=== PATIENT | male | born 1985 | race Hispanic/Latino ===

== ENCOUNTER 2024-06-29 12:52 | Inpatient (IN) | payer SELFPAY ==
[2024-06-29] VITALS (32 sets, daily range): BP systolic 92–133; BP diastolic 55–75; PULSE 75–109; RESP 10–98; TEMP 36.3–37.6; O2SAT 12–100; BMI 24.0
--- NOTE | ~2024-06-29 | CT_ITS ---
CT abdomen pelvis w con Ordering provider: Yancy Boyle PA-C History: 38 years Male with . right sided abdominal pain, hematemesis . Comparison: None. Technique: CT abdomen and pelvis with IV and without oral contrast. Automated exposure control and it erative reconstruction technique were employed. The dose-length product was 651.73 mGy-cm. 100 mL Omn ipaque 350 was given IV. Findings: VISUALIZED LOWER CHEST: Dependent atelectatic changes. Trace of right sided pleural effusion is seen. UPPER ABDOMINAL ORGANS: Liver: Normal. Gallbladder: Slightly thickened wall of the gallbladder with no evidence of stones. Clinical correlat ion to evaluate for cholecystitis advised. Spleen: Normal. Stomach/duodenum: Small sliding hiatus hernia. Pancreas: Normal. Adrenals: Normal. Kidneys: Normal. PELVIC ORGANS: The bladder is normal. Prostatic calcification. BOWEL AND MESENTERY: Colon: No evidence of diverticulitis. Normal appendix. Small Bowel: Normal. No obstruction. Peritoneum/mesentery: No free air. Ascites is seen in the subhepatic, perisplenic, right and left par acolic gutter areas and in both sides of the pelvis. No mesenteric lymphadenopathy. RETROPERITONEUM: Normal aorta. No retroperitoneal lymphadenopathy. MUSCULOSKELETAL: Superficial soft tissues: The superficial soft tissues are normal. Bones: Age appropriate degenerative changes of the spine. Bilateral sacroiliitis. IMPRESSION: 1. Thickened wall of the gallbladder. Clinical evaluation for cholecystitis advised. 2. Small sliding hiatus hernia. 3. Ascites is seen in the infrahepatic, perisplenic and paracolic areas more on the right side. 4. Prostatic calcifications is noted. Possibility of a prostatic urethra stone is less likely. Clini grabiel correlation advised. Reviewed, dictated and finalized at location A. IMPRESSION: 1. Thickened wall of the gallbladder. Clinical evaluation for cholecystitis ad vised. 2. Small sliding hiatus hernia. 3. Ascites is seen in the infrahepatic, perisplenic and paracolic areas more o n the right side. 4. Prostatic calcifications is noted. Possibility of a prostatic urethra stone is less likely. Clinical correlation advised.
--- NOTE | ~2024-06-29 | XR_ITS ---
Portable chest x-ray Comparison: None Clinical History: Tube placement Findings: Endotracheal tube tip is just above the danny. Consider mild retraction. NG tube in [employer] position. There is focal discoid left basilar atelectasis. Lungs are otherwise clear. Cardio mediastinal silhouette is stable. Bones and soft tissues are unremarkable. Impression: ET tube tip just above the danny. Consider mild retraction. NG tube in satisfactory position. Focal discoid left basilar atelectasis or scarring. Reviewed, dictated and finalized at location . SAW OPERATOR Impression: ET tube tip just above the danny. Consider mild retraction. NG tube in satisfactory position. Focal discoid left basilar atelectasis or scarring.
--- NOTE | ~2024-06-29 | US_ITS ---
US abdomen complete DATE: 06/30/2024 12:52 INDICATION: Right upper quadrant abdominal pain TECHNIQUE: Real-time imaging of the liver, pancreas, gallbladder COMPARISON: 06/29/2024 CT abdomen pelvis FINDINGS: No hepatic space-occupying mass lesion. Normal hepatopedal portal venous flow direction. Mild ascites, with fluid noted in the perihepatic area and Morison's pouch. The gallbladder is not optimally distended; the patient is reportedly not NPO. No apparent gallstones are noted.. The pancreas is unremarkable. The spleen measures 12.8 cm, within upper normal range. Right kidney measures 12.2 cm length, left kidney 13.2 cm length. No renal mass lesion or hydronephro sis is detected. IMPRESSION: Mild ascites Reviewed, dictated and finalized at [facility]. Reviewed, dictated and finalized at [facility]. IMPRESSION: Mild ascites
--- NOTE | ~2024-06-29 | XR_ITS ---
Upright portable view of the abdomen Clinical history: NG tube placement Findings: NG tube in satisfactory position. Bowel gas pattern somewhat nonspecific. No evidence for o bstruction or free air. No abnormal mass lesion or calcification is seen. Osseous structures are inta ct. Impression: NG tube in satisfactory position. Reviewed, dictated and finalized at [facility]. MIXER Impression: NG tube in satisfactory position.
--- NOTE | 2024-06-29 13:06 | ED.GIBLEED ---
HPI - GI Bleed General Chief complaint: GI Bleed Stated complaint: vomiting blood Time Seen by Provider: 06/29/24 12:58 Source: patient and family Mode of arrival: ambulatory Limitations: language barrier (spanish interpreter/translator Eddie #[id number]) History of Present Illness HPI Narrative: Patient presents with bright red hematemesis. He had a few episodes in triage and has a bag with frankly bloody emesis, not coffee grounds. He has had 6 episodes today and endorses abdominal pain. Has noticed that his stoo is loose and dark. Drinks alcohol daily, last drink yesterday. Denies syncope. States it has never happened before. Has not seen a cylinder dyer. No diagnosed history of hepatic disease (cirrhosis, liver failure, known varices) or cardiac failure. Related Data Allergies Allergy/AdvReac Type Severity Reaction Status Date / Time No Known Allergies Allergy Verified 06/29/24 13:21 [facility] Social History Social History (Updated 06/29/24 @ 19:59 by Cristiana Matta MD) Social History: Guamanian speaking Alcohol intake: current Alcohol use details: daily Exam Narrative: GENERAL: Ill-appearing, well-nourished but in acute distress. HEAD: Normocephalic, atraumatic. EYES: Non injected, mildly icteric. conjunctival pallor. ENT: Nares clear, no rhinorrhea or epistaxis. NECK: Supple. CHEST: Non labored. No respiratory distress. HEART: Tachycardic rate and rhythm. . ABDOMEN/GI: Soft, nondistended. Large vomitus bright red hematemesis. Normal rectal tone. FOBT/guiaic grossly positive x2 windows. EXTREMITIES: Normal range of motion. No lower extremity edema. SKIN: Diaphoretic, no rash. NEURO: No focal deficits. Alert and oriented x3. Tremulous fingers when outstretched. PSYCH: Normal mood and affect. Course Vital Signs Vital signs: Vital Signs Temperature 99.0 F 06/29/24 12:59 Pulse Rate 102 H 06/29/24 12:59 Respiratory Rate 15 06/29/24 12:59 Blood Pressure 95/55 L 06/29/24 12:59 Pulse Oximetry 98 06/29/24 12:59 Oxygen Delivery Room Air 06/29/24 12:59 Temperature 98.6 F 06/29/24 16:40 Pulse Rate 107 H 06/29/24 19:29 Respiratory Rate 20 06/29/24 19:29 Blood Pressure 107/58 L 06/29/24 19:29 Pulse Oximetry 100 06/29/24 19:29 Oxygen Delivery Room Air 06/29/24 12:59 MDM - GI Bleed MDM Narrative Medical decision making narrative: Patient presents with marked bright red hematemesis. Initially hypotensive and diaphoretic. He drinks alcohol daily by report with last drink yesterday but no diagnosed underlying liver issues. In the ED he is afebrile with VS notable for hypotension and mild tachycardia. 2 large bore IVs initiated and patient given 1L IV fluids, ceftriaxone , 80mg Protonix IV. He is also given Zofran and octreotide bolus followed by infusion. Patient's hemodynamics improve and he is no longer diaphoretic on reassessment. Rectal exam guiaic positive. Hemoglobin <7. Blood product transfusion I have discussed the proposed blood product transfusion with the patient and support person. I have informed the patient regarding potential risks of blood product transfusion which, though rare, include transfusion reaction, hepatitis, and HIV. The patient has been given the opportunity to ask questions about the need to be transfused and possible outcomes of not receiving this treatment. Patient has verbally agreed to undergo transfusion. Nurse will obtain signed consent and place it in the patient's chart. Order was placed for transfusion of 1 unit of packed red blood cells. Patient has hyperglycemia with an anion gap but no radha acidosis on CMP. I suspect this is due to starvation ketosis. Lactic acid also elevated. He has mild hypokalemia. Will replete and obtain a magnesium level to assess for concomitant electrolyte derangements. [place] bleeding score: 10 points - high risk. Based on patient's Hgb, BUN, initial SBP, sex, heart rate, presence/absence of melena, syncope, hepatic disease, cardiac failure Discussed with GI Dr Emmanuel Shaikh who plans to perform EGD tomorrow. NPO immediately. He does have another incident in which he belches and has another recurrence of bloody vomitus although less volume and short lived. Compazine ordered. I did discuss with Dr Emmanuel Shaikh again who advises to continue to defer NG tube placement at this time. Ativan ordered small dose for concern for alcohol withdrawal. CIWA protocol ordered: score 15. Blood transfusion finishes and patient does note that he has some hives on his left buttock. I did evaluate these at bedside and concur. They are also not previously seen when I performed a rectal exam. Otherwise no hives elsewhere. Will administer diphenhydramine but otherwise no other systemic signs of blood transfusion reaction or anaphylaxis. Repeat H/H performed which shows worsening. Given now <6, 2 units ordered. Discussed with hospitalist KAYLEEN Zeng who discusses with hospitalist attending. Patient to be accepted but discussed with insulator helper. Discussed with insulator helper who concurs with management and does recommend ICU admission. Critical Care More than 1 vital organs impaired with high probability of decompensation requiring critical care time. Time includes spent talking to patient/family, consultants and admitting team, interpreting labs, reviewing results, frequent reassessments and management. Time excludes separate billable procedures. Differential Diagnosis Differential diagnosis: Likely esophageal varices, gastritis, Nevaeh-Martel syndrome, Upper gastrointestinal hemorrhage and melena Lab Data Attestation: I reviewed the patient's lab results. 06/29/24 17:34 06/29/24 13:09 Labs: Lab Results 06/29/24 06/29/24 06/29/24 Range/Units 13:06 13:09 16:31 WBC 12.0 H (4.5-10.0) K/mm3 RBC 2.67 L (4.6-6.20) M/mm3 Hgb 6.1 L* (14.0-18.0) g/dL Hct 20.8 L* (42.0-52.0) % MCV 77.9 L (80-100) fl MCH 22.8 L (26-34) pg MCHC 29.3 L (32-36) g/dl RDW 21.8 H (11.5-14.5) % Plt Count 122 L (150-375) k/mm3 MPV 11.3 H (7.4-10.4) fl Immature Gran % (Auto) 0.3 (0-0.5) % Neut % (Auto) 50.9 (45.5-73.1) % Lymph % (Auto) 39.3 (18.3-44.2) % Craig % (Auto) 8.3 (2.6-8.5) % Eos % (Auto) 0.7 (0-4.4) % Baso % (Auto) 0.5 (0.2-1.2) % Lymph # (Auto) 4.70 H (0.9-3.2) K/mm3 Craig # (Auto) 1.0 H (0.1-0.6) K/mm3 Eos # (Auto) 0.1 (0-0.3) K/mm3 Baso # (Auto) 0.1 (0.0-0.1) K/mm3 Abs Immat Gran (auto) 0.04 H (0.00-0.031) K/mm3 Absolute Neuts (auto) 6.1 (1.3-6.7) K/mm3 Absolute Nucleated RBC 0.030 H (0.0-0.012) K/mm3 Nucleated RBC % 0.3 H (0.0-0.2) % Platelet Estimate Slightly decreased (Adequate) % Immature Plt Fraction 10.9 (0.9-11.2) % Polychromasia 1+ Hypochromasia 2+ Anisocytosis 2+ Target Cells 1+ Schistocytes None seen PT 16.0 H (11.1-14.7) Seconds INR 1.3 APTT 24.8 (22.3-36.8) Seconds Sodium 138 (137-145) mmol/L Potassium 3.2 L (3.4-5.0) mmol/L Chloride 101 (98-107) mmol/L Carbon Dioxide 22 (22-30) mmol/L Anion Gap 15 H (4-12) mmol/L BUN 8 L (9-20) mg/dL Creatinine 0.60 L (0.7-1.3) mg/dL Estim Creat Clear Calc 131 ml/min Estimated GFR > 60 (59 - ) Glucose 164 H (65-110) mg/dL POC Capillary Glucose 169 H (65-105) mg/dl Lactic Acid 4.4 H* 1.8 (0.7-2.0) mmol/L Calcium 8.5 (8.4-10.2) mg/dL Magnesium 2.1 (1.6-2.3) mg/dL Total Bilirubin 1.2 (0.2-1.3) mg/dL AST 55 (17-59) U/L ALT 19 (6-50) U/L Alkaline Phosphatase 116 (38-126) U/L Troponin I < 0.012 (0.000-0.034) ng/mL NT-Pro-B Natriuret Pep < 20 (19.9-100) pg/mL Total Protein 9.0 H (6.3-8.2) g/dL Albumin 4.2 (3.5-5.1) g/dL Blood Type O Positive Antibody Screen Negative Crossmatch See Detail 06/29/24 Range/Units 17:34 WBC (4.5-10.0) K/mm3 RBC (4.6-6.20) M/mm3 Hgb 5.7 L* (14.0-18.0) g/dL Hct 18.4 L* (42.0-52.0) % MCV (80-100) fl MCH (26-34) pg MCHC (32-36) g/dl RDW (11.5-14.5) % Plt Count (150-375) k/mm3 MPV (7.4-10.4) fl Immature Gran % (Auto) (0-0.5) % Neut % (Auto) (45.5-73.1) % Lymph % (Auto) (18.3-44.2) % Craig % (Auto) (2.6-8.5) % Eos % (Auto) (0-4.4) % Baso % (Auto) (0.2-1.2) % Lymph # (Auto) (0.9-3.2) K/mm3 Craig # (Auto) (0.1-0.6) K/mm3 Eos # (Auto) (0-0.3) K/mm3 Baso # (Auto) (0.0-0.1) K/mm3 Abs Immat Gran (auto) (0.00-0.031) K/mm3 Absolute Neuts (auto) (1.3-6.7) K/mm3 Absolute Nucleated RBC (0.0-0.012) K/mm3 Nucleated RBC % (0.0-0.2) % Platelet Estimate (Adequate) % Immature Plt Fraction (0.9-11.2) % Polychromasia Hypochromasia Anisocytosis Target Cells Schistocytes PT (11.1-14.7) Seconds INR APTT (22.3-36.8) Seconds Sodium (137-145) mmol/L Potassium (3.4-5.0) mmol/L Chloride (98-107) mmol/L Carbon Dioxide (22-30) mmol/L Anion Gap (4-12) mmol/L BUN (9-20) mg/dL Creatinine (0.7-1.3) mg/dL Estim Creat Clear Calc ml/min Estimated GFR (59 - ) Glucose (65-110) mg/dL POC Capillary Glucose (65-105) mg/dl Lactic Acid (0.7-2.0) mmol/L Calcium (8.4-10.2) mg/dL Magnesium (1.6-2.3) mg/dL Total Bilirubin (0.2-1.3) mg/dL AST (17-59) U/L ALT (6-50) U/L Alkaline Phosphatase (38-126) U/L Troponin I (0.000-0.034) ng/mL NT-Pro-B Natriuret Pep (19.9-100) pg/mL Total Protein (6.3-8.2) g/dL Albumin (3.5-5.1) g/dL Blood Type Antibody Screen Crossmatch ECG Data EKG #1: Attestation: I personally reviewed and interpreted this ECG as follows: ECG completion date: 06/29/24 ECG completion time: 13:06 Interpretation: sinus tachycardia at a rate of 100 beats per minute. WA interval 108. QRS 86. QT/ QTC 381/438. Good R-wave progression across the precordial leads. T-wave inversion isolated to lead 3 but otherwise upright in normal in contiguous 2 and AVF. There is also T-wave flattening in questionable inversion in V3 but upright in V4. Critical Care Time Critical Care Time Critical Care Time: Yes Total Critical Care Time: 35 Discharge Plan Discharge Clinical Impression: Acute upper gastrointestinal bleeding, Leukocytosis, Microcytic anemia, Thrombocytopenia, Blood transfusion during current hospitalisation, Hyperglycemia, Hypokalemia, Alcohol abuse, Alcohol withdrawal Patient Disposition: Still a Patient Condition: Serious
[2024-06-29 13:09] LABS: Glucose Point of Care 169 mg/dl (65-105)
--- NOTE | 2024-06-29 13:14 | ECG_ITS ---
Test Date: 2024-06-29 13:06:05 Measurements Intervals [place] Rate: 100 P: 15 AL: 108 QRS: 17 QRSD: 86 T: 17 QT: 381 QTc: 493 Interpretive Statements SINUS TACHYCARDIA WITH SHORT AL INTERVAL POSSIBLE RIGHT VENTRICULAR CONDUCTION DELAY BORDERLINE T WAVE ABNORMALITY- ANTERIOR LEADS BORDERLINE ECG No previous ECG available for comparison Electronically Signed On 06-29-2024 13:36:59 CDT by Torey Ballesteros D.O.
[2024-06-29] MEDS: PANTOPRAZOLE SODIUM IV 40 MG VIAL 80 MG (13:17)
[2024-06-29 13:18] LABS: Basophils Absolute Auto 0.1 K/mm3 (0.0-0.1); Basophils Percent Auto 0.5 % (0.2-1.2); Eosinophils Absolute Auto 0.1 K/mm3 (0-0.3); Eosinophils Percent Auto 0.7 % (0-4.4); Immature Granulocyte Absolute 0.04 K/mm3 (0.00-0.031); Immature Granulocyte Percent A 0.3 % (0-0.5); Immature Platelet Fraction Pct 10.9 % (0.9-11.2); Lymphocytes Percent Auto 39.3 % (18.3-44.2); Mean Corpuscular HGB Conc 29.3 g/dl (32-36); Mean Corpuscular Hemoglobin 22.8 pg (26-34); Mean Corpuscular Volume 77.9 fl (80-100); Mean Platelet Volume 11.3 fl (7.4-10.4); Monocytes Percent Auto 8.3 % (2.6-8.5); Neutrophils Absolute Auto 6.1 K/mm3 (1.3-6.7); Neutrophils Percent Auto 50.9 % (45.5-73.1); Nucleated Red Blood Cells Perc 0.3 % (0.0-0.2); Platelet Count Result 122 k/mm3 (150-375); Red Blood Count 2.67 M/mm3 (4.6-6.20); Red Cell Distribution Width 21.8 % (11.5-14.5)
[2024-06-29] MEDS: SODIUM CHLORIDE 0.9% IV 1,000 ML 999 ML (13:18)
[2024-06-29] MEDS: ONDANSETRON INJ 4 MG/2 ML VIAL IV PUSH ×2 (13:20→22:58)
[2024-06-29] MEDS: OCTREOTIDE ACETATE 50 MCG/ML VIAL IV PUSH (13:24)
[2024-06-29 13:25] LABS: INR 1.3; Partial Thromboplastin Time 24.8 Seconds (22.3-36.8)
[2024-06-29 13:33] LABS: Hemoglobin 6.1 g/dL (14.0-18.0)
[2024-06-29 13:34] LABS: Alanine Aminotransferase 19 U/L (6-50); Albumin Level 4.2 g/dL (3.5-5.1); Alkaline Phosphatase 116 U/L (38-126); Anion Gap 15 mmol/L (4-12); Aspartate Amino Transferase 55 U/L (17-59); Bilirubin,Total 1.2 mg/dL (0.2-1.3); Blood Urea Nitrogen 8 mg/dL (9-20); Calcium 8.5 mg/dL (8.4-10.2); Carbon Dioxide 22 mmol/L (22-30); Chloride 101 mmol/L (98-107); Estimated CRCL calculation 131 ml/min; Estimated Glomerular Filt Rate > 60; Glucose 164 mg/dL (65-110); Hematocrit 20.8 % (42.0-52.0); Potassium 3.2 mmol/L (3.4-5.0); Sodium 138 mmol/L (137-145)
[2024-06-29 13:35] LABS: Platelet Estimate Slightly Decreased (Adequate)
[2024-06-29 13:36] LABS: Anisocytosis 2+; Hypochromasia 2+; Target Cells 1+
[2024-06-29 13:37] LABS: Polychromasia 1+
[2024-06-29 13:39] LABS: Schistocytes None Seen
[2024-06-29 13:46] LABS: Troponin I < 0.012 ng/mL (0.000-0.034)
[2024-06-29 13:53] LABS: Lactic Acid Reflex 4.4 mmol/L (0.7-2.0)
[2024-06-29] MEDS: OCTREOTIDE ACETATE 500 MCG in SODIUM CHLORIDE 0.9% IV 99 ML 10 MCG IV CONT (14:46)
[2024-06-29] MEDS: SODIUM CHLORIDE 0.9% IV 1,000 ML 999 ML IV CONT (15:12)
[2024-06-29] MEDS: SODIUM CHLORIDE 0.9% IV 250 ML 30 ML IV CONT ×2 (15:25→22:55)
[2024-06-29 15:31] LABS: Magnesium 2.1 mg/dL (1.6-2.3)
[2024-06-29 15:41] LABS: NT Pro B Type Natriuretic Pept < 20 pg/mL (19.9-100)
[2024-06-29] MEDS: LORazepam INJ (*CRX) 2 MG/ML VIAL 0.5 MG IV PUSH (15:45)
[2024-06-29] MEDS: PROCHLORPERAZINE EDISYLATE 10 MG/2 ML VIAL 5 MG IV PUSH (15:47)
[2024-06-29 16:14] LABS: Reflex Lactic Acid Yes or No Add Lactic
[2024-06-29] MEDS: diphenhydrAMINE HCl INJ 50 MG/ML VIAL 25 MG IV PUSH (16:38)
[2024-06-29] MEDS: KCL 20 MEQ/SW 100 ML 100 ML 50 MEQ IVPB (16:43)
--- NOTE | 2024-06-29 16:45 | PC.NURSE ---
PT WITH C/O ITCHING AND RASH TO BILATERAL BUTTOCKS/UPPER THIGHS POSTERIORLY. SMALL AREA OF HIVES NOTED. NO RASH/HIVES ANYWHERE ELSE ON BODY. NO RESP DISTRESS. DR RAMSEY MADE AWARE. BENADRYL ORDERED AND GIVEN.
[2024-06-29 16:47] LABS: Lactic Acid 1.8 mmol/L (0.7-2.0)
[2024-06-29 17:44] LABS: Hemoglobin 5.7 g/dL (14.0-18.0)
[2024-06-29 17:45] LABS: Hematocrit 18.4 % (42.0-52.0)
--- NOTE | 2024-06-29 20:50 | PM.IMHP ---
H&P: HPI History of Present Illness Date/Time: 06/29/24 20:50 Chief Complaint: Vomiting blood. Narrative: This is a pleasant 38-year-old male with history of alcohol abuse who presented to the emergency department for evaluation of vomiting blood. He is Lithuanian-speaking and the following history is obtained via video assisted camp cook. Yesterday evening the patient developed sharp ?needle-like? pain in the periumbilical region radiating to the right mid and upper quadrant. He had sweats and ran a fever last evening though did not take his temperature. He also vomited several times what sounds like coffee-ground emesis. This morning he had a loose, dark and tarry stools and he began vomiting bright red blood admixed with clots which led him to the ED for evaluation. With further questioning he reports having intermittent sharp chest pain which are brief and occur without pattern though that has not occurred recently. At times he feels short of breath. He denies indigestion, bloating, and belching. He drinks 6 beers a day and has for at least 10 years. He denies significant caffeine intake and denies taking NSAIDs. He has no known history of peptic ulcers, liver disease, or heart disease. He also denies cold and flu symptoms, exertional chest pain, pleuritic pain, palpitations, cough, syncope, and near syncope. Regarding his alcohol intake, he does admit to getting sweats and shakes if he goes a day or 2 without drinking. He denies hallucinations and has no history of alcohol withdrawal seizures. In the ED: Blood pressure was 95/55 on arrival and he has been tachycardic in the upper 90s to low 100s. Labs are significant for WBC count of 12.0, hemoglobin 6.1, hematocrit 20.8, platelet 122, potassium 3.2, anion gap 15, BUN 8, creatinine 0.60, lactic acid 4.4, PT 16, INR 1.3, PTT 24.8. 3 units packed red blood cells were ordered and he has been started on octreotide and pantoprazole drips. He is being admitted to the ICU in this setting for close monitoring and GI consultation. Review of Systems Review of Systems: 12 systems were reviewed and are negative except for as per HPI. [facility] Past Medical History Medical History Alcohol abuse Surgical History Surgical History (Updated 06/29/24 @ 21:37 by Yancy Boyle PA-C) No history of previous surgery Family History Family History (Updated 06/29/24 @ 21:37 by Yancy Boyle PA-C) Other Family history non-contributory Social History Social History (Updated 06/29/24 @ 21:38 by Yancy Boyle PA-C) Social History: Surrogate medical decision maker: Tina Whitman, spouse. Code status: Full code. Smoking status: Current some day smoker Tobacco type: cigarettes Additional smoking assessment comments: Smokes rarely on occasion. Alcohol intake: current Drinks per week: 42 Alcohol use details: Six beers a day. Substance use: never Do You Feel Safe in your Home?: Yes Lack of Transportation: No Lack of Food: Never True Current Housing: I Have Housing Concerned About Future Housing: No Difficulty Paying Gas/Electric Bills: No Difficulty Paying for Meds: No Currently Unemployed: No Education: Decline to Answer Difficulty w/ Childcare or Family Care: No Additional living arrangements comments: Lives with and 2 children. 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 Spiritual care concerns: No Meds Home Medications and Allergies Allergies Allergy/AdvReac Type Severity Reaction Status Date / Time No Known Allergies Allergy Verified 06/29/24 13:21 Vital Signs Vital Signs - 24 hr 06/29/24 12:59 06/29/24 13:28 06/29/24 13:50 Temperature 99.0 F Pulse Rate 102 H 75 93 Respiratory Rate 15 12 12 Blood Pressure 95/55 L 92/60 L 121/66 Pulse Oximetry 98 100 100 Oxygen Delivery Room Air 06/29/24 14:48 06/29/24 13:31 06/29/24 13:46 Temperature Pulse Rate 95 87 93 Respiratory Rate 12 12 13 Blood Pressure 101/60 103/61 121/66 Pulse Oximetry 100 100 100 Oxygen Delivery 06/29/24 14:01 06/29/24 14:16 06/29/24 15:25 Temperature 98.4 F Pulse Rate 98 98 100 Respiratory Rate 13 12 16 Blood Pressure 117/68 112/63 129/75 Pulse Oximetry 98 99 100 Oxygen Delivery 06/29/24 15:40 06/29/24 16:40 06/29/24 15:30 Temperature 98.8 F 98.6 F Pulse Rate 102 H 100 100 Respiratory Rate 14 14 12 Blood Pressure 133/72 114/65 128/72 Pulse Oximetry 100 100 100 Oxygen Delivery 06/29/24 15:31 06/29/24 15:40 06/29/24 15:46 Temperature Pulse Rate 103 H 102 H 101 H Respiratory Rate 15 14 15 Blood Pressure 125/74 133/72 127/68 Pulse Oximetry 100 100 100 Oxygen Delivery 06/29/24 16:19 06/29/24 17:16 06/29/24 17:31 Temperature Pulse Rate 107 H 103 H 102 H Respiratory Rate 13 14 14 Blood Pressure 126/70 113/72 115/69 Pulse Oximetry 99 99 99 Oxygen Delivery 06/29/24 17:46 06/29/24 18:16 06/29/24 18:31 Temperature Pulse Rate 104 H 108 H 109 H Respiratory Rate 13 14 16 Blood Pressure 100/63 110/66 112/69 Pulse Oximetry 99 96 98 Oxygen Delivery 06/29/24 19:00 06/29/24 19:29 06/29/24 20:18 Temperature Pulse Rate 106 H 107 H 90 Respiratory Rate 12 20 12 Blood Pressure 106/66 107/58 L 118/66 Pulse Oximetry 100 100 97 Oxygen Delivery 06/29/24 20:34 06/29/24 20:38 Temperature 98.1 F 98.1 F Pulse Rate 99 96 Respiratory Rate 98 H 14 Blood Pressure 118/67 118/67 Pulse Oximetry 12 L 98 Oxygen Delivery Exam Narrative: General: Moderately ill-appearing male supine in bed. Weight: 67.7 kg. BMI: 24.1. HEENT: Normocephalic, atraumatic. PERRL, EOMI. Sclera anicteric. Conjunctiva mildly injected. Tacky mucous membranes. Neck: Supple. Respiratory: Lungs are clear to auscultation bilaterally. Cardiovascular: Regular rate and rhythm with S1-S2. Systolic murmur at the left sternal border and apex. Gastrointestinal: Abdomen is soft and nondistended with hypoactive bowel sounds. He is very tender to palpation over the right side of the abdomen with mild guarding but no obvious rebound tenderness. Skin: Warm and dry. Generalized pallor. Extremities: No cyanosis, clubbing, or edema. Radial and pedal pulses intact. Neurological: Alert. Cranial nerves 2-12 are grossly intact. No tremors. No gross focal deficits to casual conversation. Psychiatric: Pleasant and cooperative with appropriate mood and affect. H&P: Results Labs Labs: Short CBC 06/29/24 06/29/24 Range/Units 13:09 17:34 WBC 12.0 H (4.5-10.0) K/mm3 Hgb 6.1 L* 5.7 L* (14.0-18.0) g/dL Hct 20.8 L* 18.4 L* (42.0-52.0) % Plt Count 122 L (150-375) k/mm3 BMP 06/29/24 13:09 Sodium 138 Potassium 3.2 L Chloride 101 Carbon Dioxide 22 BUN 8 L Creatinine 0.60 L Glucose 164 H Calcium 8.5 Cardiac Enzymes 06/29/24 Range/Units 13:09 Troponin I < 0.012 (0.000-0.034) ng/mL Liver Function 06/29/24 Range/Units 13:09 Total Bilirubin 1.2 (0.2-1.3) mg/dL AST 55 (17-59) U/L ALT 19 (6-50) U/L Alkaline Phosphatase 116 (38-126) U/L Albumin 4.2 (3.5-5.1) g/dL Assessment and Plan Assessment and plan (1) Acute upper gastrointestinal bleeding: Code(s): K92.2 - Gastrointestinal hemorrhage, unspecified Status: Acute (2) Acute blood loss anemia: Code(s): D62 - Acute posthemorrhagic anemia Status: Acute (3) Hypokalemia: Code(s): E87.6 - Hypokalemia Status: Acute (4) Right sided abdominal pain: Code(s): R10.9 - Unspecified abdominal pain Status: Acute (5) Microcytic anemia: Code(s): D50.9 - Iron deficiency anemia, unspecified Status: Acute (6) Thrombocytopenia: Code(s): D69.6 - Thrombocytopenia, unspecified Status: Acute (7) Cardiac murmur: Code(s): R01.1 - Cardiac murmur, unspecified Status: Acute (8) Alcohol abuse: Code(s): F10.10 - Alcohol abuse, uncomplicated Status: Acute Plan The patient presented to the emergency department for evaluation of dark stools and hematemesis with clots as detailed in HPI. Labs, imaging, EKG, and all reports were personally reviewed. Concerns are for gastritis, peptic ulcers, or even bleeding varices given history of alcohol abuse. He has been started on pantoprazole and octreotide drips as well as ceftriaxone 1 g daily. He is being transfused to a stable hemoglobin. Lactic acid level has normalized with fluids and blood. CT of the abdomen and pelvis is pending as he is very tender even to percussion over the right side of the abdomen. Blood pressures have been stable since admission to the ICU. Potassium will be replaced and monitored. Check fasting glucose and hemoglobin A1c. Iron studies, B12, and folate have been ordered given microcytic anemia. Thrombocytopenia may very well be related to alcohol abuse. Echocardiogram ordered for evaluation of cardiac murmur (may be due to high output however patient reports having intermittent chest pain though none recently). At this time he reports having mild withdrawal symptoms and CIWA protocol has been initiated. Start thiamine and folic acid supplementation. Findings and treatment plan were discussed with the patient. Questions were solicited and answered to satisfaction. The patient's medical management will be taken over by the hospitalist team in a.m. Quality VTE Prophylaxis VTE prophylaxis: mechanical ordered If No VTE Prophylaxis Answer both mechanical and pharmacologic: Reason no pharmacologic proph: medical contraindication (GI bleed) The patient has been admitted under observation status. Critical Care Time Critical Care Time: Yes Total Critical Care Time: 65 Attestation: Due to a high probability of clinically significant, life threatening deterioration, the patient required my highest level of preparedness to intervene emergently and I personally spent this critical care time directly and personally managing the patient. This critical care time included obtaining a history; examining the patient; pulse oximetry; ordering and review of studies; arranging urgent treatment with development of a management plan; evaluation of patient's response to treatment; frequent reassessment; and discussions with other providers. It was exclusive of separately billable procedures and treating other patients and teaching time. Please see Assessment and Plan section and the rest of the note for further information on patient assessment and treatment.
--- NOTE | 2024-06-29 21:03 | ADMGEN ---
This patient, Laron Macdonald, was admitted to Intensive Care Unit-2. Patient/family oriented to hospital policies and general routines including ID bracelet, bed and alarms, visiting hours, pain management, procedures, bathroom and other care routines, personal items, smoking policy, room service/diet, and visiting hours. Information on how to activate the Rapid Response Team has been discussed. Patient/Family are encouraged to report perceived risks to care and to ask questions if they do not understand what they are told or what they should do.
[2024-06-29] MEDS: PANTOPRAZOLE SODIUM IV 80 MG in SODIUM CHLORIDE 0.9% IV 500 ML 50 MG IV CONT (22:51)
[2024-06-29] MEDS: MORPHINE SULFATE (*CRX) 4 MG/ML INJ IV PUSH (22:54)
[2024-06-29 22:55] LABS: MRSA (PCR) NOT DETECTED (NOT DETECTE)
[2024-06-29] MEDS: TUBING, BLOOD PLUM PUMP TUBING 1 EACH XX (22:55)
[2024-06-29 23:29] LABS: Iron 36 ug/dL (49-181)
[2024-06-29 23:39] LABS: Percent Iron Saturation 7 % (20-50)
[2024-06-30] VITALS (24 sets, daily range): BP systolic 85–126; BP diastolic 48–77; PULSE 68–858; RESP 10–20; TEMP 36.1–37.5; O2SAT 96–100
[2024-06-30 00:05] LABS: Ferritin 8.76 ng/mL (17.9-464)
[2024-06-30] MEDS: OCTREOTIDE ACETATE 500 MCG in SODIUM CHLORIDE 0.9% IV 99 ML 10 MCG IV CONT (00:07)
[2024-06-30 00:18] LABS: Glucose Point of Care 122 mg/dl (65-105)
[2024-06-30 00:37] LABS: Folic Acid 10.7 ng/mL (2.76->20)
[2024-06-30] MEDS: metroNIDAZOLE 500 MG/ISO 100ML 500 MG/100 ML BAG 100 MG IVPB ×4 (01:09→23:37)
[2024-06-30 04:03] LABS: Basophils Percent Auto 0.3 % (0.2-1.2); Eosinophils Percent Auto 0.5 % (0-4.4); Hematocrit 26.1 % (42.0-52.0); Hemoglobin 8.3 g/dL (14.0-18.0); Immature Granulocyte Absolute 0.01 K/mm3 (0.00-0.031); Immature Granulocyte Percent A 0.2 % (0-0.5); Immature Platelet Fraction Pct 8.8 % (0.9-11.2); Lymphocytes Absolute Auto 1.37 K/mm3 (0.9-3.2); Lymphocytes Percent Auto 22.1 % (18.3-44.2); Mean Corpuscular HGB Conc 31.8 g/dl (32-36); Mean Corpuscular Volume 81.8 fl (80-100); Mean Platelet Volume 10.6 fl (7.4-10.4); Monocytes Absolute Auto 0.8 K/mm3 (0.1-0.6); Monocytes Percent Auto 13.5 % (2.6-8.5); Neutrophils Absolute Auto 3.9 K/mm3 (1.3-6.7); Neutrophils Percent Auto 63.4 % (45.5-73.1); Red Blood Count 3.19 M/mm3 (4.6-6.20); White Blood Count 6.2 K/mm3 (4.5-10.0)
[2024-06-30 04:09] LABS: Add Urine Microscopic? YES; Appearance Urine Clear (Clear); Bacteria Urine None Seen /hpf; Bilirubin Urine Negative (Negative); Blood Urine Negative (Negative); Color Urine Dark Yellow (Yellow); Glucose Urine UA Negative (Negative); Ketones Urine 1+ mg/dL (Negative); Leukocyte Esterase Ur Negative LEU/UL (Negative); Nitrate Urine Negative (Negative); Protein Urine Trace mg/dL (Negative); RBC Urine 0-2 /hpf (0-2); Specific Grav Ur > 1.045 (1.001-1.035); Squamous Epithelial Cell Urine None Seen /hpf (Few); WBC Urine 0-5 /hpf (0-3); pH Urine 6.5 (5.0-9.0)
[2024-06-30 04:13] LABS: Alanine Aminotransferase 15 U/L (6-50); Albumin Level 3.3 g/dL (3.5-5.1); Alkaline Phosphatase 84 U/L (38-126); Anion Gap 8 mmol/L (4-12); Aspartate Amino Transferase 42 U/L (17-59); Bilirubin,Total 1.6 mg/dL (0.2-1.3); Blood Urea Nitrogen 7 mg/dL (9-20); Calcium 7.2 mg/dL (8.4-10.2); Carbon Dioxide 24 mmol/L (22-30); Chloride 108 mmol/L (98-107); Estimated CRCL calculation 131 ml/min; Estimated Glomerular Filt Rate > 60; Glucose 108 mg/dL (65-110); Phosphorus 3.9 mg/dL (2.5-4.5); Potassium 3.6 mmol/L (3.4-5.0); Sodium 140 mmol/L (137-145)
[2024-06-30 04:25] LABS: Platelet Count Result 77 k/mm3 (150-375)
[2024-06-30 04:26] LABS: Hypochromasia 1+; Platelet Estimate Decreased (Adequate); Polychromasia 1+
[2024-06-30 04:27] LABS: Anisocytosis 1+
[2024-06-30 04:28] LABS: Schistocytes None Seen; Target Cells 1+
[2024-06-30 05:58] LABS: Thyroid Stimulating Hormone Reflex 0.304 uIU/mL (0.465-4.68)
[2024-06-30] MEDS: LACTATED RINGERS 1,000 ML 150 ML IV CONT (07:21)
--- NOTE | 2024-06-30 07:32 | WPDANESEPPF ---
Anes - Initial Pre Proc Eval Procedure: Operation Date: 06/30/24 07:30 Proposed Procedures p Esophagogastroduodenoscopy - Hira Cabral MD Date/Time: 06/30/24 07:32 Surgeon: Amy Swain MD Pre Op Diagnosis: Hematemesis/Upper GIB Patient Data Age: 38 Gender: M Height: 1.68 m Weight: 68 kg Last Vital Signs Temp 36.1 C L 06/30/24 07:18 Pulse 72 06/30/24 07:18 Resp 12 06/30/24 07:18 BP 104/77 06/30/24 07:18 Pulse Ox 97 06/30/24 07:18 O2 Del Method Room Air 06/30/24 07:18 Allergies Allergy/AdvReac Type Severity Reaction Status Date / Time No Known Allergies Allergy Verified 06/30/24 07:15 Home Medications Medication Instructions Recorded Confirmed Type No Home Medications 06/29/24 06/29/24 History Laboratory Tests 06/29/24 06/29/24 06/29/24 13:06 13:09 16:31 WBC 12.0 H K/mm3 (4.5-10.0) RBC 2.67 L M/mm3 (4.6-6.20) Hgb 6.1 L* g/dL (14.0-18.0) Hct 20.8 L* % (42.0-52.0) MCV 77.9 L fl (80-100) MCH 22.8 L pg (26-34) MCHC 29.3 L g/dl (32-36) RDW 21.8 H % (11.5-14.5) Plt Count 122 L k/mm3 (150-375) MPV 11.3 H fl (7.4-10.4) Immature Gran % (Auto) 0.3 % (0-0.5) Neut % (Auto) 50.9 % (45.5-73.1) Lymph % (Auto) 39.3 % (18.3-44.2) [place] % (Auto) 8.3 % (2.6-8.5) Eos % (Auto) 0.7 % (0-4.4) Baso % (Auto) 0.5 % (0.2-1.2) Lymph # (Auto) 4.70 H K/mm3 (0.9-3.2) [place] # (Auto) 1.0 H K/mm3 (0.1-0.6) Eos # (Auto) 0.1 K/mm3 (0-0.3) Baso # (Auto) 0.1 K/mm3 (0.0-0.1) Abs Immat Gran (auto) 0.04 H K/mm3 (0.00-0.031) Absolute Neuts (auto) 6.1 K/mm3 (1.3-6.7) Absolute Nucleated RBC 0.030 H K/mm3 (0.0-0.012) Nucleated RBC % 0.3 H % (0.0-0.2) Platelet Estimate Slightly decreased (Adequate) % Immature Plt Fraction 10.9 % (0.9-11.2) Polychromasia 1+ Hypochromasia 2+ Anisocytosis 2+ Target Cells 1+ Schistocytes None seen PT 16.0 H Seconds (11.1-14.7) INR 1.3 APTT 24.8 Seconds (22.3-36.8) Sodium 138 mmol/L (137-145) Potassium 3.2 L mmol/L (3.4-5.0) Chloride 101 mmol/L (98-107) Carbon Dioxide 22 mmol/L (22-30) Anion Gap 15 H mmol/L (4-12) BUN 8 L mg/dL (9-20) Creatinine 0.60 L mg/dL (0.7-1.3) Estim Creat Clear Calc 131 ml/min Estimated GFR > 60 (59 - ) Glucose 164 H mg/dL (65-110) POC Capillary Glucose 169 H mg/dl (65-105) Lactic Acid 4.4 H* mmol/L 1.8 mmol/L (0.7-2.0) (0.7-2.0) Calcium 8.5 mg/dL (8.4-10.2) Phosphorus Magnesium 2.1 mg/dL (1.6-2.3) Iron 36 L ug/dL (49-181) TIBC 482 ug/dL (265-497) % Saturation 7 L % (20-50) Ferritin 8.76 L ng/mL (17.9-464) Total Bilirubin 1.2 mg/dL (0.2-1.3) AST 55 U/L (17-59) ALT 19 U/L (6-50) Alkaline Phosphatase 116 U/L (38-126) Troponin I < 0.012 ng/mL (0.000-0.034) NT-Pro-B Natriuret Pep < 20 pg/mL (19.9-100) Total Protein 9.0 H g/dL (6.3-8.2) Albumin 4.2 g/dL (3.5-5.1) Vitamin B12 353.0 pg/mL (239-931) Folate 10.7 ng/mL (2.76->20) TSH (Reflex) Free T4 Urine Color Urine Appearance Urine pH Ur Specific [place] Urine Protein Urine Glucose (UA) Urine Ketones Ur Blood (Man) Urine Nitrate Urine Bilirubin Urine Urobilinogen Leukocyte Esterase Rfl Urine RBC Urine WBC Ur Squamous Epith Cells Urine Bacteria Urine Casts Nasal MRSA (PCR) Blood Type O Positive Antibody Screen Negative Crossmatch See Detail 06/29/24 06/29/24 06/30/24 17:34 21:40 00:07 WBC RBC Hgb 5.7 L* g/dL (14.0-18.0) Hct 18.4 L* % (42.0-52.0) MCV MCH MCHC RDW Plt Count MPV Immature Gran % (Auto) Neut % (Auto) Lymph % (Auto) [place] % (Auto) Eos % (Auto) Baso % (Auto) Lymph # (Auto) [place] # (Auto) Eos # (Auto) Baso # (Auto) Abs Immat Gran (auto) Absolute Neuts (auto) Absolute Nucleated RBC Nucleated RBC % Platelet Estimate % Immature Plt Fraction Polychromasia Hypochromasia Anisocytosis Target Cells Schistocytes PT INR APTT Sodium Potassium Chloride Carbon Dioxide Anion Gap BUN Creatinine Estim Creat Clear Calc Estimated GFR Glucose POC Capillary Glucose 122 H mg/dl (65-105) Lactic Acid Calcium Phosphorus Magnesium Iron TIBC % Saturation Ferritin Total Bilirubin AST ALT Alkaline Phosphatase Troponin I NT-Pro-B Natriuret Pep Total Protein Albumin Vitamin B12 Folate TSH (Reflex) Free T4 Urine Color Urine Appearance Urine pH Ur Specific [place] Urine Protein Urine Glucose (UA) Urine Ketones Ur Blood (Man) Urine Nitrate Urine Bilirubin Urine Urobilinogen Leukocyte Esterase Rfl Urine RBC Urine WBC Ur Squamous Epith Cells Urine Bacteria Urine Casts Nasal MRSA (PCR) Not detected (NOT DETECTE) Blood Type Antibody Screen Crossmatch 06/30/24 06/30/24 03:52 03:57 WBC 6.2 K/mm3 (4.5-10.0) RBC 3.19 L M/mm3 (4.6-6.20) Hgb 8.3 L g/dL (14.0-18.0) Hct 26.1 L % (42.0-52.0) MCV 81.8 D fl (80-100) MCH 26.0 D pg (26-34) MCHC 31.8 L g/dl (32-36) RDW 18.0 H % (11.5-14.5) Plt Count 77 L k/mm3 (150-375) MPV 10.6 H fl (7.4-10.4) Immature Gran % (Auto) 0.2 % (0-0.5) Neut % (Auto) 63.4 % (45.5-73.1) Lymph % (Auto) 22.1 % (18.3-44.2) [place] % (Auto) 13.5 H % (2.6-8.5) Eos % (Auto) 0.5 % (0-4.4) Baso % (Auto) 0.3 % (0.2-1.2) Lymph # (Auto) 1.37 K/mm3 (0.9-3.2) [place] # (Auto) 0.8 H K/mm3 (0.1-0.6) Eos # (Auto) 0.0 K/mm3 (0-0.3) Baso # (Auto) 0.0 K/mm3 (0.0-0.1) Abs Immat Gran (auto) 0.01 K/mm3 (0.00-0.031) Absolute Neuts (auto) 3.9 K/mm3 (1.3-6.7) Absolute Nucleated RBC 0.000 K/mm3 (0.0-0.012) Nucleated RBC % 0.0 % (0.0-0.2) Platelet Estimate Decreased (Adequate) % Immature Plt Fraction 8.8 % (0.9-11.2) Polychromasia 1+ Hypochromasia 1+ Anisocytosis 1+ Target Cells 1+ Schistocytes None seen PT INR APTT Sodium 140 mmol/L (137-145) Potassium 3.6 mmol/L (3.4-5.0) Chloride 108 H mmol/L (98-107) Carbon Dioxide 24 mmol/L (22-30) Anion Gap 8 mmol/L (4-12) BUN 7 L mg/dL (9-20) Creatinine 0.60 L mg/dL (0.7-1.3) Estim Creat Clear Calc 131 ml/min Estimated GFR > 60 (59 - ) Glucose 108 mg/dL (65-110) POC Capillary Glucose Lactic Acid Calcium 7.2 L mg/dL (8.4-10.2) Phosphorus 3.9 mg/dL (2.5-4.5) Magnesium 2.0 mg/dL (1.6-2.3) Iron TIBC % Saturation Ferritin Total Bilirubin 1.6 H mg/dL (0.2-1.3) AST 42 U/L (17-59) ALT 15 U/L (6-50) Alkaline Phosphatase 84 U/L (38-126) Troponin I NT-Pro-B Natriuret Pep Total Protein 7.0 g/dL (6.3-8.2) Albumin 3.3 L g/dL (3.5-5.1) Vitamin B12 Folate TSH (Reflex) 0.304 L uIU/mL (0.465-4.68) Free T4 Pending Urine Color Dark yellow (Yellow) Urine Appearance Clear (Clear) Urine pH 6.5 (5.0-9.0) Ur Specific [place] > 1.045 H (1.001-1.035) Urine Protein Trace mg/dL (Negative) Urine Glucose (UA) Negative mg/dL (Negative) Urine Ketones 1+ H mg/dL (Negative) Ur Blood (Man) Negative (Negative) Urine Nitrate Negative (Negative) Urine Bilirubin Negative (Negative) Urine Urobilinogen 1.0 mg/dL (<2.0) Leukocyte Esterase Rfl Negative ROSEANNA/UL (Negative) Urine RBC 0-2 /hpf (0-2) Urine WBC 0-5 /hpf (0-3) Ur Squamous Epith Cells None seen /hpf (Few) Urine Bacteria None seen /hpf Urine Casts 3-5 Nasal MRSA (PCR) Blood Type Antibody Screen Crossmatch Patient hx anesthesia problems: none Family hx anesthesia problems: none Results Review: All pre-operative results and documents have been reviewed as part of the pre-operative evaluation. COUNTS INCLUDE 234 BEDS AT THE [facility] Past Medical History Medical History Alcohol abuse Surgical History Surgical History No history of previous surgery Family History Family History Other Family history non-contributory Social History Social History Social History: Surrogate medical decision maker: Tina Georgerez, spouse. Code status: Full code. Smoking status: Current some day smoker Tobacco type: cigarettes Additional smoking assessment comments: Smokes rarely on occasion. Alcohol intake: current Drinks per week: 42 Alcohol use details: Six beers a day. Substance use: never Do You Feel Safe in your Home?: Yes Lack of Transportation: No Lack of Food: Never True Current Housing: I Have Housing Concerned About Future Housing: No Difficulty Paying Gas/Electric Bills: No Difficulty Paying for Meds: No Currently Unemployed: No Education: Decline to Answer Difficulty w/ Childcare or Family Care: No Additional living arrangements comments: Lives with and 2 children. 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 Spiritual care concerns: No Anes - Eval Final PreProcedure Day of Procedure 06/30/24 07:32 Patient weight: normal Heart: regular rate and rhythm Lungs: decreased breath sounds Airway: Mallampati scale class III Neurological: alert and oriented Last oral intake: >/= 8 hours ASA classification: IV Emergent: no Anesthetic plan: proceed Anesthesia type and monitoring: general GIVS and standard monitoring Results Review: All pre-operative results and documents have been reviewed as part of the pre-operative evaluation. Informed Consent: The patient's anesthetic plan and its attendant risks and benefits were discussed with the patient/family/POA. Questions were solicited and answers provided to the satisfaction of the patient/family/POA.
--- NOTE | 2024-06-30 07:35 | P.CONGI_ITS ---
Assessment and Plan Assessment and plan (1) Hematemesis: Code(s): K92.0 - Hematemesis Status: Acute Assessment and Plan: admitted to icu, s/p blood transfusion differential pud but also varices given alcohol abuse (CT scan showed normal liver) will proceed with urgent EGD, more recommendations after scope (2) Acute upper gastrointestinal bleeding: Code(s): K92.2 - Gastrointestinal hemorrhage, unspecified Status: Acute Assessment and Plan: icu care, iv protonix and octreotide egd (3) Acute blood loss anemia: Code(s): D62 - Acute posthemorrhagic anemia Status: Acute Assessment and Plan: s/p blood transfusion monitor for more signs of bleeding (4) Alcohol abuse: Code(s): F10.10 - Alcohol abuse, uncomplicated Status: Acute Assessment and Plan: thiamine, monitor for withdrawal signs (5) Thickening of wall of gallbladder: Code(s): K82.8 - Other specified diseases of gallbladder Status: Acute Assessment and Plan: had some abdominal pain earlier on antibiotics for now monitor GI Consult Note Consult date/time: 06/30/24 07:35 Reason for consult: hematemesis HPI: Laron Macdonald is a 38 year old male history of alcohol abuse about 6 beers daily for 10 years who has not seen a doctor for a while or taking any medication. He came to the emergency department because new onset of hematemesis. Day before of admission had sharp pain in the periumbilical region radiating to upper quadrant then had several episodes of coffee-ground emesis. Yesterday had dark tarry stools and started vomiting bright red blood with clots. Denies taking NSAIDs, never had scopes or required blood transfusion previously. Arrival Blood pressure was 95/55 on arrival, he was tachycardic in low 100s. Labs are significant for WBC count of 12.0, hemoglobin 6.1, hematocrit 20.8, platelet 122, potassium 3.2, anion gap 15, BUN 8, creatinine 0.60, lactic acid 4.4, PT 16, INR 1.3, PTT 24.8. 3 units packed red blood cells. CT scan showed thickening of GB, normal liver, small hiatal hernia. Started on iv octreotide, protonix and antibiotics. Review of Systems Constitutional: Constitutional: Reports lethargy Eyes: Eyes: Denies blurry vision ENT: Reports Normal hearing present Cardiovascular: Cardiovascular: Denies leg edema Respiratory: Respiratory: Denies cough Gastrointestinal: Gastrointestinal: Reports abdominal pain, Reports melena, Reports nausea and Reports hematemesis Genitourinary: Genitourinary: Denies hematuria Musculoskeletal: Musculoskeletal: Denies myalgias Integumentary/Breasts: Skin/Breast: Denies rash Neurologic: Denies Abnormal speech present Psychiatric: Psychiatric: Denies behavioral changes [facility] Past Medical History Medical History (Updated 06/30/24 @ 08:06 by Hira Cabral MD) Alcohol abuse Hematemesis Thickening of wall of gallbladder Surgical History Surgical History No history of previous surgery Family History Family History Other Family history non-contributory Social History Social History Social History: Surrogate medical decision maker: Tina Killian J Carlos, spouse. Code status: Full code. Smoking status: Current some day smoker Tobacco type: cigarettes Additional smoking assessment comments: Smokes rarely on occasion. Alcohol intake: current Drinks per week: 42 Alcohol use details: Six beers a day. Substance use: never Do You Feel Safe in your Home?: Yes Lack of Transportation: No Lack of Food: Never True Current Housing: I Have Housing Concerned About Future Housing: No Difficulty Paying Gas/Electric Bills: No Difficulty Paying for Meds: No Currently Unemployed: No Education: Decline to Answer Difficulty w/ Childcare or Family Care: No Additional living arrangements comments: Lives with and 2 children. 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 Spiritual care concerns: No Meds Home Medications and Allergies Home Medications Medication Instructions Recorded Confirmed Type No Home Medications 06/29/24 06/29/24 History Allergies Allergy/AdvReac Type Severity Reaction Status Date / Time No Known Allergies Allergy Verified 06/30/24 07:15 Vital Signs Vital Signs - 24 hr 06/29/24 12:59 06/29/24 13:28 06/29/24 13:50 Temperature 99.0 F Pulse Rate 102 H 75 93 Pulse Rate [Monitor] Respiratory Rate 15 12 12 Blood Pressure 95/55 L 92/60 L 121/66 Pulse Oximetry 98 100 100 Oxygen Delivery Room Air 06/29/24 14:48 06/29/24 13:31 06/29/24 13:46 Temperature Pulse Rate 95 87 93 Pulse Rate [Monitor] Respiratory Rate 12 12 13 Blood Pressure 101/60 103/61 121/66 Pulse Oximetry 100 100 100 Oxygen Delivery 06/29/24 14:01 06/29/24 14:16 06/29/24 15:25 Temperature 98.4 F Pulse Rate 98 98 100 Pulse Rate [Monitor] Respiratory Rate 13 12 16 Blood Pressure 117/68 112/63 129/75 Pulse Oximetry 98 99 100 Oxygen Delivery 06/29/24 15:40 06/29/24 16:40 06/29/24 15:30 Temperature 98.8 F 98.6 F Pulse Rate 102 H 100 100 Pulse Rate [Monitor] Respiratory Rate 14 14 12 Blood Pressure 133/72 114/65 128/72 Pulse Oximetry 100 100 100 Oxygen Delivery 06/29/24 15:31 06/29/24 15:40 06/29/24 15:46 Temperature Pulse Rate 103 H 102 H 101 H Pulse Rate [Monitor] Respiratory Rate 15 14 15 Blood Pressure 125/74 133/72 127/68 Pulse Oximetry 100 100 100 Oxygen Delivery 06/29/24 16:19 06/29/24 17:16 06/29/24 17:31 Temperature Pulse Rate 107 H 103 H 102 H Pulse Rate [Monitor] Respiratory Rate 13 14 14 Blood Pressure 126/70 113/72 115/69 Pulse Oximetry 99 99 99 Oxygen Delivery 06/29/24 17:46 06/29/24 18:16 06/29/24 18:31 Temperature Pulse Rate 104 H 108 H 109 H Pulse Rate [Monitor] Respiratory Rate 13 14 16 Blood Pressure 100/63 110/66 112/69 Pulse Oximetry 99 96 98 Oxygen Delivery 06/29/24 19:00 06/29/24 19:29 06/29/24 20:18 Temperature Pulse Rate 106 H 107 H 90 Pulse Rate [Monitor] Respiratory Rate 12 20 12 Blood Pressure 106/66 107/58 L 118/66 Pulse Oximetry 100 100 97 Oxygen Delivery 06/29/24 20:34 06/29/24 20:38 06/29/24 20:53 Temperature 98.1 F 98.1 F 97.4 F L Pulse Rate 99 96 99 Pulse Rate [Monitor] Respiratory Rate 98 H 14 12 Blood Pressure 118/67 118/67 105/69 Pulse Oximetry 12 L 98 98 Oxygen Delivery 06/29/24 21:11 06/29/24 21:35 06/29/24 22:05 Temperature 99.7 F H 98.4 F Pulse Rate 94 83 Pulse Rate [Monitor] 84 Respiratory Rate 14 12 Blood Pressure 112/69 109/69 Pulse Oximetry 98 99 Oxygen Delivery 06/30/24 00:00 06/29/24 22:30 06/30/24 00:34 Temperature 98.3 F 98.1 F Pulse Rate 78 78 80 Pulse Rate [Monitor] Respiratory Rate 10 L 10 L 11 L Blood Pressure 109/72 102/74 Pulse Oximetry 98 98 97 Oxygen Delivery Room Air 06/29/24 21:53 06/29/24 22:00 06/29/24 22:00 Temperature 99.7 F H Pulse Rate 83 86 86 Pulse Rate [Monitor] Respiratory Rate 13 14 Blood Pressure 109/69 109/69 Pulse Oximetry 98 98 Oxygen Delivery 06/30/24 00:00 06/30/24 00:00 06/30/24 00:53 Temperature 98.5 F Pulse Rate 86 76 Pulse Rate [Monitor] 858 H Respiratory Rate 11 L Blood Pressure 104/73 Pulse Oximetry 97 Oxygen Delivery 06/30/24 01:53 06/30/24 02:00 06/30/24 02:00 Temperature 98.5 F 98.4 F Pulse Rate 70 73 73 Pulse Rate [Monitor] Respiratory Rate 10 L 10 L Blood Pressure 107/75 110/77 Pulse Oximetry 98 98 Oxygen Delivery 06/30/24 02:50 06/30/24 04:00 06/30/24 04:10 Temperature 98.3 F 98.2 F Pulse Rate 74 68 68 Pulse Rate [Monitor] Respiratory Rate 10 L 10 L 10 L Blood Pressure 99/71 L 113/77 Pulse Oximetry 96 97 97 Oxygen Delivery Room Air 06/30/24 04:00 06/30/24 06:00 06/30/24 06:00 Temperature Pulse Rate 69 71 71 Pulse Rate [Monitor] Respiratory Rate 15 Blood Pressure 109/77 Pulse Oximetry 96 Oxygen Delivery 06/30/24 07:18 Temperature 96.9 F L Pulse Rate 72 Pulse Rate [Monitor] Respiratory Rate 12 Blood Pressure 104/77 Pulse Oximetry 97 Oxygen Delivery Room Air Exam Const: General: comfortable and no acute distress HENMT: Face/Nose/Sinus: Normal nares present Eyes: General: appearance normal, both eyes and all related structures Neck: Neck: supple Resp: Auscultation: clear to auscultation bilaterally Cardio: Rate: regular rate Rhythm: regular rhythm GI: Inspection: non-distended GI Palp: Yes Soft to palpation and No Tenderness to palpation present (GI) Auscultation: normal bowel sounds Skin: Other: pale Neuro: Speech: normal speech Motor exam (neuro): 5/5 motor strength present throughout Extrem: General: normal to inspection Psych: Mental Status: mental status grossly normal Results Labs 06/30/24 03:52 06/30/24 03:52 Labs: Short CBC 06/29/24 06/29/24 06/30/24 Range/Units 13:09 17:34 03:52 WBC 12.0 H 6.2 (4.5-10.0) K/mm3 Hgb 6.1 L* 5.7 L* 8.3 L (14.0-18.0) g/dL Hct 20.8 L* 18.4 L* 26.1 L (42.0-52.0) % Plt Count 122 L 77 L (150-375) k/mm3 BMP 06/29/24 06/30/24 13:09 03:52 Sodium 138 140 Potassium 3.2 L 3.6 Chloride 101 108 H Carbon Dioxide 22 24 BUN 8 L 7 L Creatinine 0.60 L 0.60 L Glucose 164 H 108 Calcium 8.5 7.2 L Cardiac Enzymes 06/29/24 Range/Units 13:09 Troponin I < 0.012 (0.000-0.034) ng/mL Liver Function 06/29/24 06/30/24 Range/Units 13:09 03:52 Total Bilirubin 1.2 1.6 H (0.2-1.3) mg/dL AST 55 42 (17-59) U/L ALT 19 15 (6-50) U/L Alkaline Phosphatase 116 84 (38-126) U/L Albumin 4.2 3.3 L (3.5-5.1) g/dL Urine 06/30/24 Range/Units 03:57 Urine Color Dark yellow (Yellow) Urine Appearance Clear (Clear) Urine pH 6.5 (5.0-9.0) Ur Specific [place] > 1.045 H (1.001-1.035) Urine Protein Trace (Negative) mg/dL Urine Glucose (UA) Negative (Negative) mg/dL
[2024-06-30] MEDS: EPINEPHrine INJ 1 MG/10 ML SYRINGE XX (07:54)
[2024-06-30 08:13] LABS: Glucose Point of Care 111 mg/dl (65-105)
[2024-06-30 09:11] LABS: Basophils Percent Auto 0.6 % (0.2-1.2); Eosinophils Absolute Auto 0.1 K/mm3 (0-0.3); Eosinophils Percent Auto 1.7 % (0-4.4); Hematocrit 26.9 % (42.0-52.0); Hemoglobin 8.4 g/dL (14.0-18.0); Immature Granulocyte Absolute 0.02 K/mm3 (0.00-0.031); Immature Granulocyte Percent A 0.4 % (0-0.5); Immature Platelet Fraction Pct 9.2 % (0.9-11.2); Lymphocytes Percent Auto 14.9 % (18.3-44.2); Mean Corpuscular HGB Conc 31.2 g/dl (32-36); Mean Corpuscular Hemoglobin 25.8 pg (26-34); Mean Corpuscular Volume 82.8 fl (80-100); Mean Platelet Volume 10.6 fl (7.4-10.4); Monocytes Absolute Auto 0.6 K/mm3 (0.1-0.6); Neutrophils Absolute Auto 3.9 K/mm3 (1.3-6.7); Neutrophils Percent Auto 71.4 % (45.5-73.1); Platelet Count Result 73 k/mm3 (150-375); Red Blood Count 3.25 M/mm3 (4.6-6.20); Red Cell Distribution Width 17.9 % (11.5-14.5); White Blood Count 5.4 K/mm3 (4.5-10.0)
[2024-06-30] MEDS: FOLIC ACID 1 MG TABLET PO (09:18)
[2024-06-30] MEDS: PANTOPRAZOLE SODIUM IV 40 MG VIAL IV PUSH ×2 (09:18→21:20)
[2024-06-30] MEDS: THIAMINE HCL 200 MG/2 ML VIAL 100 MG IV PUSH (09:18)
[2024-06-30] MEDS: CALCIUM GLUC 2,000 MG/NS 100ML 2,000 MG/100 ML BAG 100 MG IVPB (09:19)
--- NOTE | 2024-06-30 09:26 | WPDCNINT ---
Assessment and Plan Assessment and plan (1) Acute upper gastrointestinal bleeding: Code(s): K92.2 - Gastrointestinal hemorrhage, unspecified Status: Acute Assessment and Plan: Patient presented with acute upper GI bleeding in setting of heavy alcohol intake. Patient received blood transfusion in the ER. Along with IV fluids He was treated with IV octreotide IV Protonix and IV Rocephin EGD done this morning shows reflux esophagitis along with ulcer Will discontinue IV Rocephin and octreotide and continue Protonix Liquid diet Continue hemoglobin and hemodynamic monitoring (2) Esophageal ulcer: Code(s): K22.10 - Ulcer of esophagus without bleeding Status: Acute Assessment and Plan: See above (3) Alcohol abuse: Code(s): F10.10 - Alcohol abuse, uncomplicated Status: Acute Assessment and Plan: Monitor for withdrawal symptoms [facility] protocol ordered Thiamine and folic acid ordered (4) Acute blood loss anemia: Code(s): D62 - Acute posthemorrhagic anemia Status: Acute Assessment and Plan: Patient has received transfusion. Monitor hemoglobin and transfuse me as needed (5) Right sided abdominal pain: Code(s): R10.9 - Unspecified abdominal pain Status: Acute Assessment and Plan: Could be secondary to ulcer Check lipase CT scan showed thickened wall gallbladder Right upper quadrant ultrasound ordered Plan DVT prophylaxis -SCD Stress ulcer prophylaxis -PPI Nutrition -liquid diet Code Status - Full Code Total Critical Care Time - 30 minutes Due to a high probability of clinically significant, life threatening deterioration, the patient required my highest level of preparedness to intervene emergently and I personally spent this critical care time directly and personally managing the patient. This critical care time included obtaining a history; examining the patient; pulse oximetry; ordering and review of studies; arranging urgent treatment with development of a management plan; evaluation of patient's response to treatment; frequent reassessment; and discussions with other providers. It was exclusive of separately billable procedures and treating other patients and teaching time. Please see Assessment and Plan section and the rest of the note for further information on patient assessment and treatment Police [employer] Consult Note Consult date: 06/30/24 Reason for consult: Upper GI bleed HPI: Laorn Macdonald is a 38 year old male with past medical history of alcohol abuse who drinks 6 beers daily for 10 years came to the emergency department yesterday because new onset of hematemesis. He also complained of sharp pain in the periumbilical region radiating to upper quadrant the day before followed by several episodes of coffee-ground emesis. The day before presentation he also had dark tarry stools and started vomiting bright red blood with clots. He denied taking NSAIDs or any blood thinners. On Arrival to ER Blood pressure was 95/55 l, he was tachycardic in low 100s. Labs are significant for WBC count of 12.0, hemoglobin 6.1, hematocrit 20.8, platelet 122, potassium 3.2, anion gap 15, BUN 8, creatinine 0.60, lactic acid 4.4, PT 16, INR 1.3, PTT 24.8. 3 units packed red blood cells. CT scan showed thickening of GB, normal liver, small hiatal hernia. Patient was started on iv octreotide infusion, protonix IV and Rocephin. GI was consulted This morning patient went for EGD. Denies any new complaints Review of Systems Review of Systems: All systems reviewed & are unremarkable except as noted in HPI and below (HPI) [facility] Past Medical History Medical History Alcohol abuse Hematemesis Thickening of wall of gallbladder Surgical History Surgical History No history of previous surgery Family History Family History Other Family history non-contributory Social History Social History Social History: Surrogate medical decision maker: Tina Georgerez, spouse. Code status: Full code. Smoking status: Current some day smoker Tobacco type: cigarettes Additional smoking assessment comments: Smokes rarely on occasion. Alcohol intake: current Drinks per week: 42 Alcohol use details: Six beers a day. Substance use: never Do You Feel Safe in your Home?: Yes Lack of Transportation: No Lack of Food: Never True Current Housing: I Have Housing Concerned About Future Housing: No Difficulty Paying Gas/Electric Bills: No Difficulty Paying for Meds: No Currently Unemployed: No Education: Decline to Answer Difficulty w/ Childcare or Family Care: No Additional living arrangements comments: Lives with and 2 children. 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 Spiritual care concerns: No Meds Home Medications and Allergies Home Medications Medication Instructions Recorded Confirmed Type No Home Medications 06/29/24 06/29/24 History Allergies Allergy/AdvReac Type Severity Reaction Status Date / Time No Known Allergies Allergy Verified 06/30/24 07:15 Vital Signs Vital Signs - 24 hr 06/29/24 12:59 06/29/24 13:28 06/29/24 13:50 Temperature 37.2 C Pulse Rate 102 H 75 93 Pulse Rate [Monitor] Respiratory Rate 15 12 12 Blood Pressure 95/55 L 92/60 L 121/66 Pulse Oximetry 98 100 100 Oxygen Delivery Room Air Oxygen Flow Rate Fraction of Inspired Oxygen 06/29/24 14:48 06/29/24 13:31 06/29/24 13:46 Temperature Pulse Rate 95 87 93 Pulse Rate [Monitor] Respiratory Rate 12 12 13 Blood Pressure 101/60 103/61 121/66 Pulse Oximetry 100 100 100 Oxygen Delivery Oxygen Flow Rate Fraction of Inspired Oxygen 06/29/24 14:01 06/29/24 14:16 06/29/24 15:25 Temperature 36.9 C Pulse Rate 98 98 100 Pulse Rate [Monitor] Respiratory Rate 13 12 16 Blood Pressure 117/68 112/63 129/75 Pulse Oximetry 98 99 100 Oxygen Delivery Oxygen Flow Rate Fraction of Inspired Oxygen 06/29/24 15:40 06/29/24 16:40 06/29/24 15:30 Temperature 37.1 C 37.0 C Pulse Rate 102 H 100 100 Pulse Rate [Monitor] Respiratory Rate 14 14 12 Blood Pressure 133/72 114/65 128/72 Pulse Oximetry 100 100 100 Oxygen Delivery Oxygen Flow Rate Fraction of Inspired Oxygen 06/29/24 15:31 06/29/24 15:40 06/29/24 15:46 Temperature Pulse Rate 103 H 102 H 101 H Pulse Rate [Monitor] Respiratory Rate 15 14 15 Blood Pressure 125/74 133/72 127/68 Pulse Oximetry 100 100 100 Oxygen Delivery Oxygen Flow Rate Fraction of Inspired Oxygen 06/29/24 16:19 06/29/24 17:16 06/29/24 17:31 Temperature Pulse Rate 107 H 103 H 102 H Pulse Rate [Monitor] Respiratory Rate 13 14 14 Blood Pressure 126/70 113/72 115/69 Pulse Oximetry 99 99 99 Oxygen Delivery Oxygen Flow Rate Fraction of Inspired Oxygen 06/29/24 17:46 06/29/24 18:16 06/29/24 18:31 Temperature Pulse Rate 104 H 108 H 109 H Pulse Rate [Monitor] Respiratory Rate 13 14 16 Blood Pressure 100/63 110/66 112/69 Pulse Oximetry 99 96 98 Oxygen Delivery Oxygen Flow Rate Fraction of Inspired Oxygen 06/29/24 19:00 06/29/24 19:29 06/29/24 20:18 Temperature Pulse Rate 106 H 107 H 90 Pulse Rate [Monitor] Respiratory Rate 12 20 12 Blood Pressure 106/66 107/58 L 118/66 Pulse Oximetry 100 100 97 Oxygen Delivery Oxygen Flow Rate Fraction of Inspired Oxygen 06/29/24 20:34 06/29/24 20:38 06/29/24 20:53 Temperature 36.7 C 36.7 C 36.3 C L Pulse Rate 99 96 99 Pulse Rate [Monitor] Respiratory Rate 98 H 14 12 Blood Pressure 118/67 118/67 105/69 Pulse Oximetry 12 L 98 98 Oxygen Delivery Oxygen Flow Rate Fraction of Inspired Oxygen 06/29/24 21:11 06/29/24 21:35 06/29/24 22:05 Temperature 37.6 C H 36.9 C Pulse Rate 94 83 Pulse Rate [Monitor] 84 Respiratory Rate 14 12 Blood Pressure 112/69 109/69 Pulse Oximetry 98 99 Oxygen Delivery Oxygen Flow Rate Fraction of Inspired Oxygen 06/30/24 00:00 06/29/24 22:30 06/30/24 00:34 Temperature 36.8 C 36.7 C Pulse Rate 78 78 80 Pulse Rate [Monitor] Respiratory Rate 10 L 10 L 11 L Blood Pressure 109/72 102/74 Pulse Oximetry 98 98 97 Oxygen Delivery Room Air Oxygen Flow Rate Fraction of Inspired Oxygen 06/29/24 21:53 06/29/24 22:00 06/29/24 22:00 Temperature 37.6 C H Pulse Rate 83 86 86 Pulse Rate [Monitor] Respiratory Rate 13 14 Blood Pressure 109/69 109/69 Pulse Oximetry 98 98 Oxygen Delivery Oxygen Flow Rate Fraction of Inspired Oxygen 06/30/24 00:00 06/30/24 00:00 06/30/24 00:53 Temperature 36.9 C Pulse Rate 86 76 Pulse Rate [Monitor] 858 H Respiratory Rate 11 L Blood Pressure 104/73 Pulse Oximetry 97 Oxygen Delivery Oxygen Flow Rate Fraction of Inspired Oxygen 06/30/24 01:53 06/30/24 02:00 06/30/24 02:00 Temperature 36.9 C 36.9 C Pulse Rate 70 73 73 Pulse Rate [Monitor] Respiratory Rate 10 L 10 L Blood Pressure 107/75 110/77 Pulse Oximetry 98 98 Oxygen Delivery Oxygen Flow Rate Fraction of Inspired Oxygen 06/30/24 02:50 06/30/24 04:00 06/30/24 04:10 Temperature 36.8 C 36.8 C Pulse Rate 74 68 68 Pulse Rate [Monitor] Respiratory Rate 10 L 10 L 10 L Blood Pressure 99/71 L 113/77 Pulse Oximetry 96 97 97 Oxygen Delivery Room Air Oxygen Flow Rate Fraction of Inspired Oxygen 06/30/24 04:00 06/30/24 06:00 06/30/24 06:00 Temperature Pulse Rate 69 71 71 Pulse Rate [Monitor] Respiratory Rate 15 Blood Pressure 109/77 Pulse Oximetry 96 Oxygen Delivery Oxygen Flow Rate Fraction of Inspired Oxygen 06/30/24 07:18 06/30/24 07:59 06/30/24 08:09 Temperature 36.1 C L Pulse Rate 72 97 93 Pulse Rate [Monitor] Respiratory Rate 12 20 13 Blood Pressure 104/77 85/48 L 114/71 Pulse Oximetry 97 97 100 Oxygen Delivery Room Air Nasal Cannula Nasal Cannula Oxygen Flow Rate 6 2 Fraction of Inspired Oxygen 06/30/24 08:19 06/30/24 08:44 Temperature Pulse Rate 95 Pulse Rate [Monitor] Respiratory Rate 16 Blood Pressure 108/74 Pulse Oximetry 100 98 Oxygen Delivery Room Air Room Air Oxygen Flow Rate Fraction of Inspired Oxygen 21 Exam Narrative: General: Pt is alert awake and in NAD Lungs/Chest: Trachea central Clear BS B/L, No crackles or wheezing. Cardiac: RRR. Normal S1 S2. No murmurs Circulation: Pedal pulses are intact and symmetrical. Abdomen: Normal bowel sounds.. Soft. NT. ND. Extremities: No clubbing, cyanosis or edema. Warm : Castrejon in place Neurologic: Follows commands. Moves all 4 extremities PERRL Skin: No Rash Results Labs 06/30/24 03:52 06/30/24 03:52 Labs: Impressions Abdomen/Pelvis CT 06/29/24 23:05 IMPRESSION: 1. Thickened wall of the gallbladder. Clinical evaluation for cholecystitis advised. 2. Small sliding hiatus hernia. 3. Ascites is seen in the infrahepatic, perisplenic and paracolic areas more on the right side. 4. Prostatic calcifications is noted. Possibility of a prostatic urethra stone is less likely. Clinical correlation advised. Short CBC 06/29/24 06/29/24 06/30/24 Range/Units 13:09 17:34 03:52 WBC 12.0 H 6.2 (4.5-10.0) K/mm3 Hgb 6.1 L* 5.7 L* 8.3 L (14.0-18.0) g/dL Hct 20.8 L* 18.4 L* 26.1 L (42.0-52.0) % Plt Count 122 L 77 L (150-375) k/mm3 BMP 06/29/24 06/30/24 13:09 03:52 Sodium 138 140 Potassium 3.2 L 3.6 Chloride 101 108 H Carbon Dioxide 22 24 BUN 8 L 7 L Creatinine 0.60 L 0.60 L Glucose 164 H 108 Calcium 8.5 7.2 L Cardiac Enzymes 06/29/24 Range/Units 13:09 Troponin I < 0.012 (0.000-0.034) ng/mL Liver Function 06/29/24 06/30/24 Range/Units 13:09 03:52 Total Bilirubin 1.2 1.6 H (0.2-1.3) mg/dL AST 55 42 (17-59) U/L ALT 19 15 (6-50) U/L Alkaline Phosphatase 116 84 (38-126) U/L Albumin 4.2 3.3 L (3.5-5.1) g/dL Urine 06/30/24 Range/Units 03:57 Urine Color Dark yellow (Yellow) Urine Appearance Clear (Clear) Urine pH 6.5 (5.0-9.0) Ur Specific [place] > 1.045 H (1.001-1.035) Urine Protein Trace (Negative) mg/dL Urine Glucose (UA) Negative (Negative) mg/dL
[2024-06-30 09:32] LABS: Lipase 64 U/L (23-300)
[2024-06-30 09:48] LABS: Anisocytosis 1+; Hypochromasia 1+; Large Platelets Present; Ovalocytes 1+; Platelet Estimate Decreased (Adequate); Schistocytes None Seen; Target Cells 1+
[2024-06-30 10:18] LABS: Free T4 Free Thyroxine Reflex 0.82 ng/dL (0.78-2.19)
[2024-06-30 11:16] LABS: Total Triiodothyronine (T3) 0.67 NG/ML (0.97-1.69)
--- NOTE | 2024-06-30 14:30 | PC.NURSE ---
This patient, Laron Macdonald, was transferred to [[facility] ] on 06/30/24 at 1331. Personal belongings sent with patient. Report given to [ milly alvarenga]. Appropriate documentation sent with patient.
--- NOTE | 2024-06-30 15:19 | P.CONS_ITS ---
Assessment and Plan Assessment and plan (1) Esophageal ulcer: Code(s): K22.10 - Ulcer of esophagus without bleeding Status: Acute Assessment and Plan: Patient has esophageal ulcer confirmed by EGD. He also has severe reflux esophagitis. No obvious evidence of perforation of the esophageal ulcers there is no pleural effusion or pneumomediastinum a CT scan. The ulcer appears to of been bleeding but it was not actively bleeding at the time of the EGD. It was injected by Dr. Benitez. Patient is been started on infusions of Protonix and octreotide. Continue management as per GI. (2) Thickening of wall of gallbladder: Code(s): K82.8 - Other specified diseases of gallbladder Status: Acute Assessment and Plan: Given the patient's alcohol use he likely has some degree of cirrhosis of his liver. Already has some ascites in the right upper quadrant. Abdominal ultrasound been ordered and the results are pending. CT scan findings are nonspecific in light of his alcohol use and liver condition. Gallbladder is frequently have thickened hill and there is a liver disease such as cirrhosis. Will follow-up on the ultrasound results. At this point there is no need for a cholecystectomy. (3) Acute blood loss anemia: Code(s): D62 - Acute posthemorrhagic anemia Status: Acute Assessment and Plan: Patient has been transfused and has a hemoglobin of 8.4 now. (4) Alcohol abuse: Code(s): F10.10 - Alcohol abuse, uncomplicated Status: Acute Assessment and Plan: Patient should be counseled to decrease and eventually eliminate alcohol use. He might be able to reverse in the liver damage over time as well as heel the esophageal ulcer. HPI Data of Consult Date/Time: 06/30/24 15:19 Requesting Physician: Amy Swain MD Primary Care Provider: UNKNOWN,DOCTOR Consult Narrative Reason for consult: Abnormal gallbladder imaging Narrative: Laron Macdonald is a 38 year old male who was admitted to the hospital with severe epigastric and right upper quadrant abdominal pain. He has a history of alcohol abuse and started having dark coffee-ground emesis. He was found have a hemoglobin is 6.1 on admission. He was admitted to the intensive care unit and started on IV Protonix infusion and octreotide. Is suspected upper GI bleeding and so he was taken to the endoscopy suite this morning where a EGD was performed. A distal esophageal ulcer and severe a GI this was seen with the stigmata of recent bleeding. The ulcer base was injected with epinephrine there is no active bleeding ongoing. During his workup for his pain the patient also had a CT scan abdomen pelvis performed showing his gallbladder wall was thickened without evidence of obvious pericholecystic fluid. Patient had some ascites fluid the right upper quadrant likely due to his alcohol use and likely cirrhosis. Review of Systems Review of Systems: The remainder of the review of systems to include constitutional, HEENT, cardiovascular, respiratory, GI, , integumentary, musculoskeletal, endocrine, immunologic, hematologic, psychiatric, and neurologic are all negative except for which is mentioned above in the HPI. [facility] Past Medical History Medical History Alcohol abuse Hematemesis Thickening of wall of gallbladder Surgical History Surgical History No history of previous surgery Family History Family History Other Family history non-contributory Social History Social History Social History: Surrogate medical decision maker: Tina Whitman, spouse. Code status: Full code. Smoking status: Current some day smoker Tobacco type: cigarettes Additional smoking assessment comments: Smokes rarely on occasion. Alcohol intake: current Drinks per week: 42 Alcohol use details: Six beers a day. Substance use: never Do You Feel Safe in your Home?: Yes Lack of Transportation: No Lack of Food: Never True Current Housing: I Have Housing Concerned About Future Housing: No Difficulty Paying Gas/Electric Bills: No Difficulty Paying for Meds: No Currently Unemployed: No Education: Decline to Answer Difficulty w/ Childcare or Family Care: No Additional living arrangements comments: Lives with and 2 children. 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 Spiritual care concerns: No Meds Home Medications and Allergies Home Medications Medication Instructions Recorded Confirmed Type No Home Medications 06/29/24 06/29/24 History Allergies Allergy/AdvReac Type Severity Reaction Status Date / Time No Known Allergies Allergy Verified 06/30/24 07:15 Vital Signs Vital Signs - 24 hr 06/29/24 15:25 06/29/24 15:40 06/29/24 16:40 Temperature 36.9 C 37.1 C 37.0 C Pulse Rate 100 102 H 100 Pulse Rate [Monitor] Respiratory Rate 16 14 14 Blood Pressure 129/75 133/72 114/65 Pulse Oximetry 100 100 100 Oxygen Delivery Oxygen Flow Rate Fraction of Inspired Oxygen 06/29/24 15:30 06/29/24 15:31 06/29/24 15:40 Temperature Pulse Rate 100 103 H 102 H Pulse Rate [Monitor] Respiratory Rate 12 15 14 Blood Pressure 128/72 125/74 133/72 Pulse Oximetry 100 100 100 Oxygen Delivery Oxygen Flow Rate Fraction of Inspired Oxygen 06/29/24 15:46 06/29/24 16:19 06/29/24 17:16 Temperature Pulse Rate 101 H 107 H 103 H Pulse Rate [Monitor] Respiratory Rate 15 13 14 Blood Pressure 127/68 126/70 113/72 Pulse Oximetry 100 99 99 Oxygen Delivery Oxygen Flow Rate Fraction of Inspired Oxygen 06/29/24 17:31 06/29/24 17:46 06/29/24 18:16 Temperature Pulse Rate 102 H 104 H 108 H Pulse Rate [Monitor] Respiratory Rate 14 13 14 Blood Pressure 115/69 100/63 110/66 Pulse Oximetry 99 99 96 Oxygen Delivery Oxygen Flow Rate Fraction of Inspired Oxygen 06/29/24 18:31 06/29/24 19:00 06/29/24 19:29 Temperature Pulse Rate 109 H 106 H 107 H Pulse Rate [Monitor] Respiratory Rate 16 12 20 Blood Pressure 112/69 106/66 107/58 L Pulse Oximetry 98 100 100 Oxygen Delivery Oxygen Flow Rate Fraction of Inspired Oxygen 06/29/24 20:18 06/29/24 20:34 06/29/24 20:38 Temperature 36.7 C 36.7 C Pulse Rate 90 99 96 Pulse Rate [Monitor] Respiratory Rate 12 98 H 14 Blood Pressure 118/66 118/67 118/67 Pulse Oximetry 97 12 L 98 Oxygen Delivery Oxygen Flow Rate Fraction of Inspired Oxygen 06/29/24 20:53 06/29/24 21:11 06/29/24 21:35 Temperature 36.3 C L 37.6 C H Pulse Rate 99 94 Pulse Rate [Monitor] 84 Respiratory Rate 12 14 Blood Pressure 105/69 112/69 Pulse Oximetry 98 98 Oxygen Delivery Oxygen Flow Rate Fraction of Inspired Oxygen 06/29/24 22:05 06/30/24 00:00 06/29/24 22:30 Temperature 36.9 C 36.8 C Pulse Rate 83 78 78 Pulse Rate [Monitor] Respiratory Rate 12 10 L 10 L Blood Pressure 109/69 109/72 Pulse Oximetry 99 98 98 Oxygen Delivery Room Air Oxygen Flow Rate Fraction of Inspired Oxygen 06/30/24 00:34 06/29/24 21:53 06/29/24 22:00 Temperature 36.7 C 37.6 C H Pulse Rate 80 83 86 Pulse Rate [Monitor] Respiratory Rate 11 L 13 Blood Pressure 102/74 109/69 Pulse Oximetry 97 98 Oxygen Delivery Oxygen Flow Rate Fraction of Inspired Oxygen 06/29/24 22:00 06/30/24 00:00 06/30/24 00:00 Temperature Pulse Rate 86 86 Pulse Rate [Monitor] 858 H Respiratory Rate 14 Blood Pressure 109/69 Pulse Oximetry 98 Oxygen Delivery Oxygen Flow Rate Fraction of Inspired Oxygen 06/30/24 00:53 06/30/24 01:53 06/30/24 02:00 Temperature 36.9 C 36.9 C Pulse Rate 76 70 73 Pulse Rate [Monitor] Respiratory Rate 11 L 10 L Blood Pressure 104/73 107/75 Pulse Oximetry 97 98 Oxygen Delivery Oxygen Flow Rate Fraction of Inspired Oxygen 06/30/24 02:00 06/30/24 02:50 06/30/24 04:00 Temperature 36.9 C 36.8 C 36.8 C Pulse Rate 73 74 68 Pulse Rate [Monitor] Respiratory Rate 10 L 10 L 10 L Blood Pressure 110/77 99/71 L 113/77 Pulse Oximetry 98 96 97 Oxygen Delivery Oxygen Flow Rate Fraction of Inspired Oxygen 06/30/24 04:10 06/30/24 04:00 06/30/24 06:00 Temperature Pulse Rate 68 69 71 Pulse Rate [Monitor] Respiratory Rate 10 L Blood Pressure Pulse Oximetry 97 Oxygen Delivery Room Air Oxygen Flow Rate Fraction of Inspired Oxygen 06/30/24 06:00 06/30/24 07:18 06/30/24 07:59 Temperature 36.1 C L Pulse Rate 71 72 97 Pulse Rate [Monitor] Respiratory Rate 15 12 20 Blood Pressure 109/77 104/77 85/48 L Pulse Oximetry 96 97 97 Oxygen Delivery Room Air Nasal Cannula Oxygen Flow Rate 6 Fraction of Inspired Oxygen 06/30/24 08:09 06/30/24 08:19 06/30/24 08:44 Temperature Pulse Rate 93 95 Pulse Rate [Monitor] Respiratory Rate 13 16 Blood Pressure 114/71 108/74 Pulse Oximetry 100 100 98 Oxygen Delivery Nasal Cannula Room Air Room Air Oxygen Flow Rate 2 Fraction of Inspired Oxygen 21 06/30/24 08:45 06/30/24 10:00 06/30/24 08:45 Temperature 36.9 C Pulse Rate 72 73 Pulse Rate [Monitor] 72 Respiratory Rate 15 12 Blood Pressure 99/62 L 109/72 Pulse Oximetry 97 96 Oxygen Delivery Oxygen Flow Rate Fraction of Inspired Oxygen 06/30/24 10:00 06/30/24 12:00 06/30/24 12:00 Temperature 36.9 C Pulse Rate 73 79 Pulse Rate [Monitor] 74 Respiratory Rate 16 Blood Pressure 124/64 Pulse Oximetry 98 Oxygen Delivery Oxygen Flow Rate Fraction of Inspired Oxygen 06/30/24 12:00 06/30/24 14:00 Temperature Pulse Rate 73 83 Pulse Rate [Monitor] Respiratory Rate Blood Pressure Pulse Oximetry Oxygen Delivery Oxygen Flow Rate Fraction of Inspired Oxygen Exam Const: General: comfortable and no acute distress HENMT: Ears: TM's normal bilaterally Face/Nose/Sinus: Normal nares present Mouth: Yes moist mucous membranes Eyes: General: appearance normal, both eyes and all related structures Sclera: sclerae normal Pupils: Equal, round and reactive pupils present EOM: EOMs intact bilaterally Neck: Neck: supple and no JVD Resp: Effort & Inspection: normal respiratory effort Auscultation: clear to auscultation bilaterally and diminished lung sounds Cardio: Rate: regular rate Rhythm: regular rhythm GI: Other: Abdomen is soft and nondistended. Some mild tenderness to palpation epigastric region abdomen. Left so in the right upper quadrant. No hernias were surgical scars are noted on the abdomen. Skin: General skin exam: normal color and no rashes or lesions noted Neuro: General: gait normal Speech: normal speech Motor exam (neuro): 5/5 motor strength present throughout and Motor abnormalites present Extrem: General: normal to inspection Psych: Mental Status: mental status grossly normal Affect: normal affect Results Labs 06/30/24 09:02 06/30/24 03:52 Labs: Short CBC 06/29/24 06/30/24 06/30/24 Range/Units 17:34 03:52 09:02 WBC 6.2 5.4 (4.5-10.0) K/mm3 Hgb 5.7 L* 8.3 L 8.4 L (14.0-18.0) g/dL Hct 18.4 L* 26.1 L 26.9 L (42.0-52.0) % Plt Count 77 L 73 L (150-375) k/mm3 BMP 06/30/24 03:52 Sodium 140 Potassium 3.6 Chloride 108 H Carbon Dioxide 24 BUN 7 L Creatinine 0.60 L Glucose 108 Calcium 7.2 L Liver Function 06/30/24 Range/Units 03:52 Total Bilirubin 1.6 H (0.2-1.3) mg/dL AST 42 (17-59) U/L ALT 15 (6-50) U/L Alkaline Phosphatase 84 (38-126) U/L Albumin 3.3 L (3.5-5.1) g/dL Urine 06/30/24 Range/Units 03:57 Urine Color Dark yellow (Yellow) Urine Appearance Clear (Clear) Urine pH 6.5 (5.0-9.0) Ur Specific [place] > 1.045 H (1.001-1.035) Urine Protein Trace (Negative) mg/dL Urine Glucose (UA) Negative (Negative) mg/dL
[2024-06-30 18:08] LABS: Hematocrit 26.6 % (42.0-52.0); Hemoglobin 8.4 g/dL (14.0-18.0); Immature Platelet Fraction Pct 8.8 % (0.9-11.2); Mean Corpuscular HGB Conc 31.6 g/dl (32-36); Mean Corpuscular Hemoglobin 25.7 pg (26-34); Mean Corpuscular Volume 81.3 fl (80-100); Mean Platelet Volume 10.4 fl (7.4-10.4); Platelet Count Result 87 k/mm3 (150-375); Red Blood Count 3.27 M/mm3 (4.6-6.20); White Blood Count 6.3 K/mm3 (4.5-10.0)
--- NOTE | 2024-06-30 21:38 | ECHO_ITS ---
Patient Info Name: Laron Macdonald Age: 38 years : 1985 Gender: Male Ht: 66 in Wt: 149 lbs BSA: 1.78 m2 HR: 72 bpm BP: 104 / 77 mmHg Heart Rhythm: Sinus Rhythm Technical Quality: Good Exam Date: 06/30/2024 8:52 AM Exam Location: Echo Lab Patient Status: Inpatient Admit Date: 06/30/2024 Staff Ordering Physician: Yancy Boyle PA-C Locomotive Pipe Fitter: Chance Albright RDCS Attending Provider: Amy Swain MD Referring Physician: Tamar ROSENBERG; Exam Type: CA echo doppler color flow Study Info Indications - murmur Complete two-dimensional, color flow and Doppler transthoracic echocardiogram is performed. Summary 1. Complete two-dimensional, color flow and Doppler transthoracic echocardiogram is performed. 2. Left ventricular systolic function is normal, estimated at 60-65%. 3. The left ventricular diastolic function is normal. 4. Left atrial chamber dimension is mildly enlarged. 5. There is mild to moderate anterior directed mitral valve regurgitation. The severity of the mitral regurgitation can be underestimated given the eccentric direction of the mitral regurgitation. Consider transesophageal echocardiogram to further evaluate. 6. There is trace tricuspid valve regurgitation. 7. No pulmonary hypertension, estimated pulmonary arterial systolic pressure is 30 mmHg. Left Ventricle Left ventricular chamber dimension is normal. Left ventricular systolic function is normal, estimated at 60-65%. There is no increased left ventricular wall thickness. Left ventricular septal wall motion is normal. The left ventricular diastolic function is normal. Right Ventricle Right ventricular chamber dimension is normal. Right ventricular systolic function is normal. Left Atria Left atrial chamber dimension is mildly enlarged. Right Atria Right atrial chamber dimension is normal. Atrial Septum Intact interatrial septum visualized by color flow imaging. Aortic Valve The aortic valve is trileaflet. There is mild aortic valve sclerosis. There is no aortic valve stenosis. There is no aortic valve regurgitation. Pulmonic Valve The pulmonic valve is normal. There is no pulmonic valve stenosis. There is no pulmonic regurgitation. Mitral Valve The mitral valve has normal leaflets. There is no mitral valve stenosis. There is mild to moderate anterior directed mitral valve regurgitation. The severity of the mitral regurgitation can be underestimated given the eccentric direction of the mitral regurgitation. Consider transesophageal echocardiogram to further evaluate. Tricuspid Valve The tricuspid valve leaflets are normal. There is no significant tricuspid valve stenosis. There is trace tricuspid valve regurgitation. No pulmonary hypertension, estimated pulmonary arterial systolic pressure is 30 mmHg. Pericardium/Pleural The pericardium appears normal. There is no pericardial effusion. Inferior Vena Cava Normal inferior vena cava with >50% collapse upon inspiration consistent with Empty right atrial pressure, 5 mmHg. Aorta The aortic root size at the sinus of Valsalva is normal. The prox ascending aorta size is normal. Left Ventricular Outflow Tract Name Value Normal LVOT 2D LVOT Diameter 1.9 cm LVOT Doppler LVOT Peak Gradient 3 mmHg LVOT Mean Gradient 2 mmHg LVOT VTI 18 cm LVOT VTI/AV VTI Ratio 0.7 LVOT Stroke Volume 49 ml LVOT CO 3.5 l/min LVOT CI 2.0 l/min/m2 Mitral Valve Name Value Normal MV Doppler MV Decel [place] 610 cm/s2 MV PHT 61 ms MV Area (PHT) 3.6 cm2 4.0-5.0 MV Regurgitation Doppler MR Peak Gradient 25 mmHg MV Diastolic Function MV E Peak Velocity 129 cm/s MV A Peak Velocity 68 cm/s MV E/A 1.9 MV Decel Time 212 ms MV Annular TDI MV E/e' (Septal) 19.9 <=8.0 MV E/e' (Lateral) 11.0 <=8.0 MV E/e' (Average) 15.4 Tricuspid Valve Name Value Normal TV Regurgitation Doppler TR Peak Velocity 250 cm/s TR Peak Gradient 25 mmHg Estimated PAP/RSVP RA Pressure 5 mmHg <=5 PA Systolic Pressure 30 mmHg <36 RV Systolic Pressure 30 mmHg <36 Aortic Valve Name Value Normal AV Doppler AV Peak Velocity 140 cm/s AV Peak Gradient 8 mmHg AV Mean Gradient 5 mmHg AV VTI 28 cm AV Area (Cont Eq VTI) 1.8 cm2 >=3.0 AV Area (Cont Eq Adalberto) 1.7 cm2 AV Regurgitation 2D LVOT Area 2.7 cm2 Ventricles Name Value Normal LV Dimensions 2D/MM IVS Diastolic Thickness (2D) 0.8 cm 0.6-1.0 LVID Diastole (2D) 6.1 cm 4.2-5.8 LVIW Diastolic Thickness (2D) 0.8 cm 0.6-1.0 LVID Systole (2D) 3.8 cm 2.5-4.0 LVOT Diameter 1.9 cm LV Mass (2D Cubed) 192.56 g 88.00-224.00 LV Mass Index (2D Cubed) 108 g/m2 49-115 Relative Wall Thickness (2D) 0.27 LV Fractional Shortening/Ejection Fraction 2D/MM LV Fractional Shortening (2D) 39 % 25-43 LV EF (2D Teicholz) 68 % 52-72 LV Diastolic Volume (4C MOD) 165 ml LV EF (4C MOD) 60 % LV Diastolic Volume (2C MOD) 142 ml LV EF (2C MOD) 61 % LV Diastolic Volume (BP MOD) 153 ml 62-150 LV Diastolic Volume Index (BP MOD) 86 ml/m2 34-74 LV Systolic Volume (BP MOD) 61 ml 21-61 LV Systolic Volume Index (BP MOD) 34 ml/m2 11-31 LV EF (BP MOD) 60 % 52-72 LV Diastolic Length (4C) 8.4 cm LV Systolic Length (4C) 6.6 cm LV Stroke Volume (4C MOD) 98 ml Atria Name Value Normal LA Dimensions LA Volume (4C A-L) 62 ml LA Volume (BP A-L) 67 ml RA Dimensions RA Area (4C) 11.5 cm2 <=18.0 Report Signatures
[2024-07-01] VITALS (9 sets, daily range): BP systolic 105–115; BP diastolic 62–76; PULSE 77–96; RESP 16–20; TEMP 36.8–37.2; O2SAT 95–98
--- NOTE | 2024-07-01 01:49 | PC.NURSE ---
Daylight Savings Time For Daylight Savings Time Ending in the Fall - Clocks are moved back. For Daylight Savings Time Beginning in the Spring - Clocks are moved ahead. For [facility], the time of change occurs at 0200 hrs. Time is taken from the sql server consultant. This entry on the patient's chart recognizes the change in time reflected during documentation. Example: 2 entries for vital signs may be charted for 0200 hrs.
[2024-07-01 05:04] LABS: Hematocrit 25.6 % (42.0-52.0); Hemoglobin 8.2 g/dL (14.0-18.0); Immature Platelet Fraction Pct 9.1 % (0.9-11.2); Mean Corpuscular Hemoglobin 25.9 pg (26-34); Mean Platelet Volume 11.1 fl (7.4-10.4); Platelet Count Result 87 k/mm3 (150-375); Red Blood Count 3.16 M/mm3 (4.6-6.20); Red Cell Distribution Width 17.9 % (11.5-14.5); White Blood Count 5.9 K/mm3 (4.5-10.0)
[2024-07-01 05:11] LABS: Hemoglobin A1C 5.5 % (<5.7)
[2024-07-01 05:17] LABS: Alanine Aminotransferase 19 U/L (6-50); Albumin Level 3.3 g/dL (3.5-5.1); Alkaline Phosphatase 81 U/L (38-126); Anion Gap 8 mmol/L (4-12); Aspartate Amino Transferase 60 U/L (17-59); Bilirubin,Total 1.2 mg/dL (0.2-1.3); Blood Urea Nitrogen 6 mg/dL (9-20); Calcium 7.7 mg/dL (8.4-10.2); Carbon Dioxide 26 mmol/L (22-30); Chloride 102 mmol/L (98-107); Estimated CRCL calculation 131 ml/min; Estimated Glomerular Filt Rate > 60; Glucose 104 mg/dL (65-110); Potassium 3.4 mmol/L (3.4-5.0); Sodium 136 mmol/L (137-145)
[2024-07-01] MEDS: metroNIDAZOLE 500 MG/ISO 100ML 500 MG/100 ML BAG 100 MG IVPB (08:59)
[2024-07-01] MEDS: THIAMINE HCL 200 MG/2 ML VIAL 100 MG IV PUSH (09:00)
[2024-07-01] MEDS: PANTOPRAZOLE SODIUM IV 40 MG VIAL IV PUSH ×2 (09:01→20:18)
[2024-07-01] MEDS: FOLIC ACID 1 MG TABLET PO (09:01)
--- NOTE | 2024-07-01 09:48 | PM.IMPN ---
Progress Note: A&P Assessment and Plan (1) Esophageal ulcer: Code(s): K22.10 - Ulcer of esophagus without bleeding Status: Acute (2) Thickening of wall of gallbladder: Code(s): K82.8 - Other specified diseases of gallbladder Status: Acute (3) Hematemesis: Code(s): K92.0 - Hematemesis Status: Acute (4) Cardiac murmur: Code(s): R01.1 - Cardiac murmur, unspecified Status: Acute (5) Right sided abdominal pain: Code(s): R10.9 - Unspecified abdominal pain Status: Acute (6) Acute blood loss anemia: Code(s): D62 - Acute posthemorrhagic anemia Status: Acute (7) Alcohol abuse: Code(s): F10.10 - Alcohol abuse, uncomplicated Status: Acute (8) Acute upper gastrointestinal bleeding: Code(s): K92.2 - Gastrointestinal hemorrhage, unspecified Status: Acute (9) Leukocytosis: Code(s): D72.829 - Elevated white blood cell count, unspecified Status: Acute (10) Thrombocytopenia: Code(s): D69.6 - Thrombocytopenia, unspecified Status: Acute (11) Microcytic anemia: Code(s): D50.9 - Iron deficiency anemia, unspecified Status: Acute (12) Blood transfusion during current hospitalisation: Status: Acute (13) Hyperglycemia: Code(s): R73.9 - Hyperglycemia, unspecified Status: Acute (14) Hypokalemia: Code(s): E87.6 - Hypokalemia Status: Acute (15) Alcohol withdrawal: Code(s): F10.939 - Alcohol use, unspecified with withdrawal, unspecified Status: Acute Plan (1) Acute upper gastrointestinal bleeding: Code(s): K92.2 - Gastrointestinal hemorrhage, unspecified Status: Acute Assessment and Plan: Patient presented with acute upper GI bleeding in setting of heavy alcohol intake. Patient received blood transfusion in the ER. Along with IV fluids EGD revealed reflux esophagitis along with ulcer discontinue IV Rocephin and octreotide continue Protonix Liquid diet hb 8.2 stable Continue hemoglobin and hemodynamic monitoring (2) Esophageal ulcer: Code(s): K22.10 - Ulcer of esophagus without bleeding Status: Acute Assessment and Plan: See above (3) Alcohol abuse: Code(s): F10.10 - Alcohol abuse, uncomplicated Status: Acute Assessment and Plan: Monitor for withdrawal symptoms [facility] protocol ordered Thiamine and folic acid ordered (4) Acute blood loss anemia: Code(s): D62 - Acute posthemorrhagic anemia Status: Acute Assessment and Plan: Patient has received transfusion. Monitor hemoglobin and transfuse me as needed Iron deficiency Ferritin 8.76, iron 36 Start Venofer IV 100 mg daily Provide oral iron on dc Right sided abdominal pain: Code(s): R10.9 - Unspecified abdominal pain Status: Acute Assessment and Plan: Could be secondary to ulcer Check lipase CT scan showed thickened wall gallbladder Right upper quadrant ultrasound ordered Plan DVT prophylaxis -SCD Stress ulcer prophylaxis -PPI Nutrition -liquid diet Code Status - Full Code Subjective Date/time seen: 07/01/24 09:48 Interval history: I saw examined patient today, patient denies nausea vomiting bloody stools. Has general weakness, denies lightheadedness, hemoglobin is stable Exam Narrative: GENERAL: Pleasant, in no acute distress. Well-nourished. - EYES: EOMI. Anicteric. - HENT: Moist mucous membranes. Pale - LUNGS: Clear to auscultation bilaterally, no wheezing, rhonchi, or rales. - CARDIOVASCULAR: Regular rate and rhythm. No murmur. No JVD. - ABDOMEN: Soft, non-tender and non-distended. No palpable masses. - EXTREMITIES: No edema. Peripheral pulses 2+. Non-tender. - NEUROLOGIC: No focal neurological deficits. CN II-XII grossly intact. General weakness - PSYCHIATRIC: Awake, Alert and oriented x 3. Appropriate mood and affect. - SKIN: No rashes or lesions. Warm. - LYMPH: No cervical lymphadenopathy. Objective Data Vital Signs Vital Signs: Vital Signs - 24 hr 06/30/24 12:00 06/30/24 12:00 06/30/24 12:00 Temperature 98.4 F Pulse Rate 79 73 Pulse Rate [Monitor] 74 Respiratory Rate 16 Blood Pressure 124/64 Pulse Oximetry 98 Oxygen Delivery Fraction of Inspired Oxygen 06/30/24 14:00 06/30/24 16:00 06/30/24 18:00 Temperature Pulse Rate 83 88 89 Pulse Rate [Monitor] Respiratory Rate Blood Pressure Pulse Oximetry Oxygen Delivery Fraction of Inspired Oxygen 06/30/24 16:00 06/30/24 21:08 06/30/24 20:00 Temperature 99.5 F 98.7 F Pulse Rate 81 85 89 Pulse Rate [Monitor] Respiratory Rate 16 16 Blood Pressure 107/68 126/73 Pulse Oximetry 97 98 Oxygen Delivery Fraction of Inspired Oxygen 06/30/24 20:00 06/30/24 20:00 06/30/24 22:00 Temperature Pulse Rate 89 82 Pulse Rate [Monitor] 89 Respiratory Rate 16 Blood Pressure 126/73 Pulse Oximetry 98 Oxygen Delivery Room Air Fraction of Inspired Oxygen 21 06/30/24 23:56 07/01/24 00:00 07/01/24 00:00 Temperature 97.7 F Pulse Rate 80 84 Pulse Rate [Monitor] 84 Respiratory Rate 16 Blood Pressure 110/73 110/73 Pulse Oximetry 97 Oxygen Delivery Fraction of Inspired Oxygen 07/01/24 00:00 07/01/24 01:54 411 DIRECTORY ASSISTANCE OPERATOR 07/01/24 04:44 Temperature 98.9 F Pulse Rate 84 78 77 Pulse Rate [Monitor] Respiratory Rate 16 16 Blood Pressure 105/72 Pulse Oximetry 97 97 Oxygen Delivery Room Air Fraction of Inspired Oxygen 21 07/01/24 04:00 07/01/24 04:00 07/01/24 04:00 Temperature Pulse Rate 96 96 Pulse Rate [Monitor] 96 Respiratory Rate 16 Blood Pressure 105/72 Pulse Oximetry 97 Oxygen Delivery Room Air Fraction of Inspired Oxygen 07/01/24 05:37 07/01/24 08:00 Temperature 98.5 F Pulse Rate 86 82 Pulse Rate [Monitor] Respiratory Rate 20 Blood Pressure 115/62 Pulse Oximetry 96 Oxygen Delivery Fraction of Inspired Oxygen Intake/Output Intake/Output: Intake & Output 06/28/24 06/29/24 06/30/24 07/01/24 23:59 23:59 23:59 22:59 Intake Total 3260 1883.5 500 Output Total 2000 800 Balance 3260 -116.5 -300 Meds/Results Medications: Active Medications Generic Name Dose Route Start Last Admin Trade Name Freq PRN Reason Stop Dose Admin Acetaminophen 650 mg 06/29/24 18:41 Acetaminophen 325 Mg Tablet PO Q4H PRN Mild Pain (1-3) or Fever Folic Acid 1 mg 06/30/24 09:00 07/01/24 09:01 Folic Acid 1 Mg Tablet PO 1 mg DAILY SJ Administration Metronidazole 500 mg in 100 mls @ 100 mls/hr 06/30/24 00:00 07/01/24 08:59 Flagyl 500 Mg/Iso Soln 100 Ml IVPB 100 mls/hr Q8H SJ Administration Lorazepam 1 mg 06/29/24 21:28 Lorazepam Inj (*Crx) 2 Mg/Ml Vial IV PUSH Q2H PRN CIWA 8-15 Lorazepam 2 mg 06/29/24 21:28 Lorazepam Inj (*Crx) 2 Mg/Ml Vial IV PUSH Q2H PRN CIWA > 15 Morphine Sulfate 2 mg 06/29/24 22:15 Morphine Sulfate (*Crx) 2 Mg/Ml Inj IV PUSH Q4H PRN Pain Rated 4-6 Morphine Sulfate 4 mg 06/29/24 22:14 06/29/24 22:54 Morphine Sulfate (*Crx) 4 Mg/Ml Inj IV PUSH 4 mg Q4H PRN Administration Pain Rated 7-10 Naloxone HCl 0.1 mg 06/29/24 21:32 Naloxone Hcl 0.4 Mg/Ml Vial IV PUSH Q5MIN PRN Opioid Reversal Ondansetron HCl 4 mg 06/29/24 18:41 06/29/24 22:58 Ondansetron Inj 4 Mg/2 Ml Vial IV PUSH 4 mg Q4H PRN Administration Nausea Pantoprazole Sodium 40 mg 06/30/24 09:00 07/01/24 09:01 Pantoprazole Sodium Iv 40 Mg Vial IV PUSH 40 mg Q12HR SJ Administration Perflutren Lipid Microsphere 0 ml 06/29/24 21:38 Perflutren Lipid Microspheres 1.5 Ml Vial Diluted To 10 Ml Total Volume IV PUSH 07/02/24 21:38 ONCE PRN adequate visualization Protocol Thiamine HCl 100 mg 06/30/24 09:00 07/01/24 09:00 Thiamine Hcl 200 Mg/2 Ml Vial IV PUSH 100 mg DAILY SJ Administration Radiology Results: ITS Impressions Abdomen/Pelvis CT 06/29/24 23:05 IMPRESSION: 1. Thickened wall of the gallbladder. Clinical evaluation for cholecystitis advised. 2. Small sliding hiatus hernia. 3. Ascites is seen in the infrahepatic, perisplenic and paracolic areas more on the right side. 4. Prostatic calcifications is noted. Possibility of a prostatic urethra stone is less likely. Clinical correlation advised. Abdomen Ultrasound 06/30/24 15:53 IMPRESSION: Mild ascites Labs Labs: Laboratory Results - last 24 hr 06/30/24 06/30/24 07/01/24 03:52 17:59 04:45 WBC 6.3 5.9 RBC 3.27 L 3.16 L Hgb 8.4 L 8.2 L Hct 26.6 L 25.6 L MCV 81.3 81.0 MCH 25.7 L 25.9 L MCHC 31.6 L 32.0 RDW 18.0 H 17.9 H Plt Count 87 L 87 L MPV 10.4 11.1 H % Immature Plt Fraction 8.8 9.1 Sodium 136 L Potassium 3.4 Chloride 102 Carbon Dioxide 26 Anion Gap 8 BUN 6 L Creatinine 0.60 L Estim Creat Clear Calc 131 Estimated GFR > 60 Glucose 104 Hemoglobin A1c 5.5 Calcium 7.7 L Magnesium 2.0 Total Bilirubin 1.2 AST 60 H ALT 19 Alkaline Phosphatase 81 Total Protein 7.0 Albumin 3.3 L Total T3 0.67 L
[2024-07-01] MEDS: IRON SUCROSE COMPLEX 100 MG in SODIUM CHLORIDE 0.9% IV 50 ML 220 MG IVPB (11:29)
--- NOTE | 2024-07-01 11:45 | PC.NURSE ---
This RN gave report to Day ARCE.
--- NOTE | 2024-07-01 12:00 | PC.NURSE ---
Pt transferred to 3MS room 301.
--- NOTE | 2024-07-01 12:05 | PC.NURSE ---
This patient, Laron Macdonald, was received from [facility] on 07/01/24 at 1205. Patient/family oriented to unit policies and routines.
--- NOTE | 2024-07-01 12:13 | P.PN_ITS ---
Progress Note: A&P Assessment and Plan (1) Esophageal ulcer: Code(s): K22.10 - Ulcer of esophagus without bleeding Status: Acute Assessment and Plan: Right upper quadrant and epigastric pain is most likely due to his esophageal ulcer. Continue management as per GI. (2) Thickening of wall of gallbladder: Code(s): K82.8 - Other specified diseases of gallbladder Status: Acute Assessment and Plan: Thickening of the gallbladder wall can be seen with his liver disease. He has no gallstones on ultrasound and no evidence of acute cholecystitis. He does not need a cholecystectomy. Surgery will sign off. Disposition as per GI and hospitalist service. Subjective Date/time seen: 07/01/24 12:13 Interval history: Patient states that his epigastric and right upper quadrant pain is low better today. Abdominal ultrasound showed no gallstones. No evidence of acute cholecystitis. Exam GI: Other: Soft nondistended mild epigastric tenderness. No guarding or rebound. No acute surgical abdomen Objective Data Vital Signs Vital Signs: Vital Signs - 24 hr 06/30/24 14:00 06/30/24 16:00 06/30/24 18:00 Temperature Pulse Rate 83 88 89 Pulse Rate [Monitor] Respiratory Rate Blood Pressure Pulse Oximetry Oxygen Delivery Fraction of Inspired Oxygen 06/30/24 16:00 06/30/24 21:08 06/30/24 20:00 Temperature 37.5 C 37.1 C Pulse Rate 81 85 89 Pulse Rate [Monitor] Respiratory Rate 16 16 Blood Pressure 107/68 126/73 Pulse Oximetry 97 98 Oxygen Delivery Fraction of Inspired Oxygen 06/30/24 20:00 06/30/24 20:00 06/30/24 22:00 Temperature Pulse Rate 89 82 Pulse Rate [Monitor] 89 Respiratory Rate 16 Blood Pressure 126/73 Pulse Oximetry 98 Oxygen Delivery Room Air Fraction of Inspired Oxygen 21 06/30/24 23:56 07/01/24 00:00 07/01/24 00:00 Temperature 36.5 C Pulse Rate 80 84 Pulse Rate [Monitor] 84 Respiratory Rate 16 Blood Pressure 110/73 110/73 Pulse Oximetry 97 Oxygen Delivery Fraction of Inspired Oxygen 07/01/24 00:00 07/01/24 01:54 EXPLOSIVE TECHNICIAN 07/01/24 04:44 Temperature 37.2 C Pulse Rate 84 78 77 Pulse Rate [Monitor] Respiratory Rate 16 16 Blood Pressure 105/72 Pulse Oximetry 97 97 Oxygen Delivery Room Air Fraction of Inspired Oxygen 21 07/01/24 04:00 07/01/24 04:00 07/01/24 04:00 Temperature Pulse Rate 96 96 Pulse Rate [Monitor] 96 Respiratory Rate 16 Blood Pressure 105/72 Pulse Oximetry 97 Oxygen Delivery Room Air Fraction of Inspired Oxygen 21 07/01/24 05:37 07/01/24 08:00 07/01/24 08:00 Temperature 36.9 C Pulse Rate 86 82 81 Pulse Rate [Monitor] Respiratory Rate 20 Blood Pressure 115/62 Pulse Oximetry 96 Oxygen Delivery Fraction of Inspired Oxygen 07/01/24 08:00 07/01/24 10:00 Temperature Pulse Rate 82 Pulse Rate [Monitor] Respiratory Rate Blood Pressure Pulse Oximetry Oxygen Delivery Room Air Fraction of Inspired Oxygen Intake/Output Intake/Output: Intake & Output 06/28/24 06/29/24 06/30/24 07/01/24 23:59 23:59 23:59 22:59 Intake Total 3260 1883.5 655 Output Total 2000 800 Balance 3260 -116.5 -145 Meds/Results Medications: Active Medications Generic Name Dose Route Start Last Admin Trade Name Freq PRN Reason Stop Dose Admin Acetaminophen 650 mg 06/29/24 18:41 Acetaminophen 325 Mg Tablet PO Q4H PRN Mild Pain (1-3) or Fever Folic Acid 1 mg 06/30/24 09:00 07/01/24 09:01 Folic Acid 1 Mg Tablet PO 1 mg DAILY SJ Administration Metronidazole 500 mg in 100 mls @ 100 mls/hr 06/30/24 00:00 07/01/24 09:59 Flagyl 500 Mg/Iso Soln 100 Ml IVPB Infused Q8H SJ Infusion Iron Sucrose 100 mg/ Sodium 55 mls @ 220 mls/hr 07/01/24 11:00 07/01/24 11:44 Chloride IVPB Infused DAILY SJ Infusion Lorazepam 1 mg 06/29/24 21:28 Lorazepam Inj (*Crx) 2 Mg/Ml Vial IV PUSH Q2H PRN CIWA 8-15 Lorazepam 2 mg 06/29/24 21:28 Lorazepam Inj (*Crx) 2 Mg/Ml Vial IV PUSH Q2H PRN CIWA > 15 Morphine Sulfate 2 mg 06/29/24 22:15 Morphine Sulfate (*Crx) 2 Mg/Ml Inj IV PUSH Q4H PRN Pain Rated 4-6 Morphine Sulfate 4 mg 06/29/24 22:14 06/29/24 22:54 Morphine Sulfate (*Crx) 4 Mg/Ml Inj IV PUSH 4 mg Q4H PRN Administration Pain Rated 7-10 Naloxone HCl 0.1 mg 06/29/24 21:32 Naloxone Hcl 0.4 Mg/Ml Vial IV PUSH Q5MIN PRN Opioid Reversal Ondansetron HCl 4 mg 06/29/24 18:41 06/29/24 22:58 Ondansetron Inj 4 Mg/2 Ml Vial IV PUSH 4 mg Q4H PRN Administration Nausea Pantoprazole Sodium 40 mg 06/30/24 09:00 07/01/24 09:01 Pantoprazole Sodium Iv 40 Mg Vial IV PUSH 40 mg Q12HR SJ Administration Perflutren Lipid Microsphere 0 ml 06/29/24 21:38 Perflutren Lipid Microspheres 1.5 Ml Vial Diluted To 10 Ml Total Volume IV PUSH 07/02/24 21:38 ONCE PRN adequate visualization Protocol Thiamine HCl 100 mg 06/30/24 09:00 07/01/24 09:00 Thiamine Hcl 200 Mg/2 Ml Vial IV PUSH 100 mg DAILY SJ Administration Radiology Results: ITS Impressions Abdomen/Pelvis CT 06/29/24 23:05 IMPRESSION: 1. Thickened wall of the gallbladder. Clinical evaluation for cholecystitis advised. 2. Small sliding hiatus hernia. 3. Ascites is seen in the infrahepatic, perisplenic and paracolic areas more on the right side. 4. Prostatic calcifications is noted. Possibility of a prostatic urethra stone is less likely. Clinical correlation advised. Abdomen Ultrasound 06/30/24 15:53 IMPRESSION: Mild ascites Labs Labs: Laboratory Results - last 24 hr 06/30/24 07/01/24 17:59 04:45 WBC 6.3 5.9 RBC 3.27 L 3.16 L Hgb 8.4 L 8.2 L Hct 26.6 L 25.6 L MCV 81.3 81.0 MCH 25.7 L 25.9 L MCHC 31.6 L 32.0 RDW 18.0 H 17.9 H Plt Count 87 L 87 L MPV 10.4 11.1 H % Immature Plt Fraction 8.8 9.1 Sodium 136 L Potassium 3.4 Chloride 102 Carbon Dioxide 26 Anion Gap 8 BUN 6 L Creatinine 0.60 L Estim Creat Clear Calc 131 Estimated GFR > 60 Glucose 104 Hemoglobin A1c 5.5 Calcium 7.7 L Magnesium 2.0 Total Bilirubin 1.2 AST 60 H ALT 19 Alkaline Phosphatase 81 Total Protein 7.0 Albumin 3.3 L
--- NOTE | 2024-07-01 14:55 | P.PNGI_ITS ---
Progress Note: A&P Assessment and Plan (1) Esophageal ulcer: Code(s): K22.10 - Ulcer of esophagus without bleeding Status: Acute Assessment and Plan: treated with egd continue with ppi twice daily stop using alcohol no more signs of bleeding egd in 6-8 weeks to reassess (2) Hematemesis: Code(s): K92.0 - Hematemesis Status: Acute Assessment and Plan: resolved advance diet (3) Acute blood loss anemia: Code(s): D62 - Acute posthemorrhagic anemia Status: Acute Assessment and Plan: no more gib (4) Alcohol abuse: Code(s): F10.10 - Alcohol abuse, uncomplicated Status: Acute (5) Acute upper gastrointestinal bleeding: Code(s): K92.2 - Gastrointestinal hemorrhage, unspecified Status: Acute (6) Thickening of wall of gallbladder: Code(s): K82.8 - Other specified diseases of gallbladder Status: Acute Assessment and Plan: asymptomatic, benign abdominal exam stop antibiotics no cholecystitis Subjective Date/time seen: 07/01/24 14:55 Interval history: urgent EGD with esophageal ulcer and stigmata of previous bleeding, injected epi no more bleeding, he is doing much better after blood transfusion no abd pain Review of Systems Review of Systems: All systems reviewed & are unremarkable except as noted in HPI and below Exam Const: General: comfortable and no acute distress HENMT: Face/Nose/Sinus: Normal nares present Eyes: General: appearance normal, both eyes and all related structures Neck: Neck: supple Resp: Auscultation: clear to auscultation bilaterally Cardio: Rate: regular rate Rhythm: regular rhythm GI: Inspection: non-distended GI Palp: Yes Soft to palpation and No Tenderness to palpation present (GI) Auscultation: normal bowel sounds Skin: General skin exam: normal color Neuro: Speech: normal speech Motor exam (neuro): 5/5 motor strength present throughout Extrem: General: normal to inspection Psych: Mental Status: mental status grossly normal Objective Data Vital Signs Vital Signs: Vital Signs - 24 hr 06/30/24 16:00 06/30/24 18:00 06/30/24 16:00 Temperature 99.5 F Pulse Rate 88 89 81 Pulse Rate [Monitor] Respiratory Rate 16 Blood Pressure 107/68 Pulse Oximetry 97 Oxygen Delivery Fraction of Inspired Oxygen 06/30/24 21:08 06/30/24 20:00 06/30/24 20:00 Temperature 98.7 F Pulse Rate 85 89 Pulse Rate [Monitor] 89 Respiratory Rate 16 Blood Pressure 126/73 126/73 Pulse Oximetry 98 Oxygen Delivery Fraction of Inspired Oxygen 06/30/24 20:00 06/30/24 22:00 06/30/24 23:56 Temperature 97.7 F Pulse Rate 89 82 80 Pulse Rate [Monitor] Respiratory Rate 16 16 Blood Pressure 110/73 Pulse Oximetry 98 97 Oxygen Delivery Room Air Fraction of Inspired Oxygen 21 07/01/24 00:00 07/01/24 00:00 07/01/24 00:00 Temperature Pulse Rate 84 84 Pulse Rate [Monitor] 84 Respiratory Rate 16 Blood Pressure 110/73 Pulse Oximetry 97 Oxygen Delivery Room Air Fraction of Inspired Oxygen 21 07/01/24 01:54 SUPPLY REQUIREMENTS OFFICER 07/01/24 04:44 07/01/24 04:00 Temperature 98.9 F Pulse Rate 78 77 96 Pulse Rate [Monitor] Respiratory Rate 16 Blood Pressure 105/72 Pulse Oximetry 97 Oxygen Delivery Fraction of Inspired Oxygen 07/01/24 04:00 07/01/24 04:00 07/01/24 05:37 Temperature Pulse Rate 96 86 Pulse Rate [Monitor] 96 Respiratory Rate 16 Blood Pressure 105/72 Pulse Oximetry 97 Oxygen Delivery Room Air Fraction of Inspired Oxygen 21 07/01/24 08:00 07/01/24 08:00 07/01/24 08:00 Temperature 98.5 F Pulse Rate 82 81 Pulse Rate [Monitor] Respiratory Rate 20 Blood Pressure 115/62 Pulse Oximetry 96 Oxygen Delivery Room Air Fraction of Inspired Oxygen 07/01/24 10:00 Temperature Pulse Rate 82 Pulse Rate [Monitor] Respiratory Rate Blood Pressure Pulse Oximetry Oxygen Delivery Fraction of Inspired Oxygen Intake/Output Intake/Output: Intake & Output 06/28/24 06/29/24 06/30/24 07/01/24 23:59 23:59 23:59 22:59 Intake Total 3260 1883.5 1135 Output Total 1999 800 Balance 3260 -116.5 335 Meds/Results Medications: Active Medications Generic Name Dose Route Start Last Admin Trade Name Freq PRN Reason Stop Dose Admin Acetaminophen 650 mg 06/29/24 18:41 Acetaminophen 325 Mg Tablet PO Q4H PRN Mild Pain (1-3) or Fever Folic Acid 1 mg 06/30/24 09:00 07/01/24 09:01 Folic Acid 1 Mg Tablet PO 1 mg DAILY SJ Administration Iron Sucrose 100 mg/ Sodium 55 mls @ 220 mls/hr 07/01/24 11:00 07/01/24 11:44 Chloride IVPB Infused DAILY SJ Infusion Lorazepam 1 mg 06/29/24 21:28 Lorazepam Inj (*Crx) 2 Mg/Ml Vial IV PUSH Q2H PRN CIWA 8-15 Lorazepam 2 mg 06/29/24 21:28 Lorazepam Inj (*Crx) 2 Mg/Ml Vial IV PUSH Q2H PRN CIWA > 15 Morphine Sulfate 2 mg 06/29/24 22:15 Morphine Sulfate (*Crx) 2 Mg/Ml Inj IV PUSH Q4H PRN Pain Rated 4-6 Morphine Sulfate 4 mg 06/29/24 22:14 06/29/24 22:54 Morphine Sulfate (*Crx) 4 Mg/Ml Inj IV PUSH 4 mg Q4H PRN Administration Pain Rated 7-10 Naloxone HCl 0.1 mg 06/29/24 21:32 Naloxone Hcl 0.4 Mg/Ml Vial IV PUSH Q5MIN PRN Opioid Reversal Ondansetron HCl 4 mg 06/29/24 18:41 06/29/24 22:58 Ondansetron Inj 4 Mg/2 Ml Vial IV PUSH 4 mg Q4H PRN Administration Nausea Pantoprazole Sodium 40 mg 06/30/24 09:00 07/01/24 09:01 Pantoprazole Sodium Iv 40 Mg Vial IV PUSH 40 mg Q12HR SJ Administration Perflutren Lipid Microsphere 0 ml 06/29/24 21:38 Perflutren Lipid Microspheres 1.5 Ml Vial Diluted To 10 Ml Total Volume IV PUSH 07/02/24 21:38 ONCE PRN adequate visualization Protocol Thiamine HCl 100 mg 06/30/24 09:00 07/01/24 09:00 Thiamine Hcl 200 Mg/2 Ml Vial IV PUSH 100 mg DAILY SJ Administration Radiology Results: ITS Impressions Abdomen/Pelvis CT 06/29/24 23:05 IMPRESSION: 1. Thickened wall of the gallbladder. Clinical evaluation for cholecystitis advised. 2. Small sliding hiatus hernia. 3. Ascites is seen in the infrahepatic, perisplenic and paracolic areas more on the right side. 4. Prostatic calcifications is noted. Possibility of a prostatic urethra stone is less likely. Clinical correlation advised. Abdomen Ultrasound 06/30/24 15:53 IMPRESSION: Mild ascites Labs Labs: Laboratory Results - last 24 hr 06/30/24 07/01/24 17:59 04:45 WBC 6.3 5.9 RBC 3.27 L 3.16 L Hgb 8.4 L 8.2 L Hct 26.6 L 25.6 L MCV 81.3 81.0 MCH 25.7 L 25.9 L MCHC 31.6 L 32.0 RDW 18.0 H 17.9 H Plt Count 87 L 87 L MPV 10.4 11.1 H % Immature Plt Fraction 8.8 9.1 Sodium 136 L Potassium 3.4 Chloride 102 Carbon Dioxide 26 Anion Gap 8 BUN 6 L Creatinine 0.60 L Estim Creat Clear Calc 131 Estimated GFR > 60 Glucose 104 Hemoglobin A1c 5.5 Calcium 7.7 L Magnesium 2.0 Total Bilirubin 1.2 AST 60 H ALT 19 Alkaline Phosphatase 81 Total Protein 7.0 Albumin 3.3 L
[2024-07-01] MEDS: MORPHINE SULFATE (*CRX) 2 MG/ML INJ IV PUSH (20:23)
[2024-07-02] VITALS (38 sets, daily range): BP systolic 64–129; BP diastolic 36–79; PULSE 50–131; RESP 16–30; TEMP 36.1–37.1; O2SAT 95–100
[2024-07-02] MEDS: ONDANSETRON INJ 4 MG/2 ML VIAL IV PUSH (01:16)
[2024-07-02] MEDS: SODIUM CHLORIDE 0.9% IV 1,000 ML 999 ML IV CONT ×3 (01:27→02:12)
[2024-07-02] MEDS: PANTOPRAZOLE SODIUM IV 40 MG VIAL IV PUSH (01:31)
[2024-07-02 01:40] LABS: Glucose Point of Care 110 mg/dl (65-105)
--- NOTE | 2024-07-02 01:40 | PC.NURSE ---
This patient, Laron Macdonald, was received from [facility] in [place] on 07/02/24 at 0140. Report received from CLAUDE Goodwin. Patient oriented to unit policies and routines
[2024-07-02 01:51] LABS: INR 1.4; Prothrombin Time 17.9 Seconds (11.1-14.7)
[2024-07-02 01:52] LABS: Alanine Aminotransferase 18 U/L (6-50); Albumin Level 3.1 g/dL (3.5-5.1); Alkaline Phosphatase 94 U/L (38-126); Anion Gap 11 mmol/L (4-12); Aspartate Amino Transferase 51 U/L (17-59); Blood Urea Nitrogen 5 mg/dL (9-20); Calcium 7.9 mg/dL (8.4-10.2); Carbon Dioxide 23 mmol/L (22-30); Chloride 103 mmol/L (98-107); Estimated CRCL calculation 131 ml/min; Estimated Glomerular Filt Rate > 60; Glucose 131 mg/dL (65-110); Partial Thromboplastin Time 28.6 Seconds (22.3-36.8); Potassium 3.4 mmol/L (3.4-5.0); Sodium 137 mmol/L (137-145)
[2024-07-02 01:53] LABS: Fibrinogen 225 mg/dl (215-510)
[2024-07-02 01:56] LABS: Hematocrit 23.5 % (42.0-52.0); Hemoglobin 7.3 g/dL (14.0-18.0); Immature Platelet Fraction Pct 8.5 % (0.9-11.2); Mean Corpuscular HGB Conc 31.1 g/dl (32-36); Mean Corpuscular Hemoglobin 25.7 pg (26-34); Mean Corpuscular Volume 82.7 fl (80-100); Mean Platelet Volume 10.7 fl (7.4-10.4); Platelet Count Result 138 k/mm3 (150-375); Red Blood Count 2.84 M/mm3 (4.6-6.20); Red Cell Distribution Width 18.5 % (11.5-14.5); White Blood Count 11.2 K/mm3 (4.5-10.0)
[2024-07-02] MEDS: OCTREOTIDE ACETATE 50 MCG/ML VIAL IV PUSH (02:04)
[2024-07-02] MEDS: NOREPINEPHRINE 8 MG/D5W 250 ML 8 MG/250 ML BAG 9.38 MG IV CONT (02:04)
[2024-07-02] MEDS: PANTOPRAZOLE SODIUM IV 80 MG in SODIUM CHLORIDE 0.9% IV 500 ML 50 MG IV CONT (02:28)
[2024-07-02] MEDS: ETOMIDATE 20 MG/10 ML AMPUL IV PUSH ×2 (02:33→02:55)
[2024-07-02] MEDS: SUCCINYLCHOLINE CHLORIDE 20 MG/ML 10 ML VIAL 100 MG IV PUSH (02:34)
--- NOTE | 2024-07-02 02:40 | PC.NURSE ---
Patient received from /S following rapid response. Patient arrives with NG tube in place. NGT connected to LCS, 300ml of bright red blood in canister immediately. Dr. Tai at bedside to place femoral central line and aware of blood loss. Orders received for 2L IVF bolus. Levophed drip ordered and started per protocol. Dr. Tai spoke with Dr. Cabral concerning patient's upper GI bleed. Dr. Cabral requested patient be intubated for airway protection. Dr. Tai intubated patient with 7.5 ETT. Patient received 20mg Etomidate and 100mg Succinylcholine. X-rays obtained. Two units of PRBCs ordered and administered.
[2024-07-02] MEDS: MIDAZOLAM HCL (*CRX) 2 MG/2 ML VIAL 4 MG IV PUSH (02:41)
[2024-07-02 02:42] LABS: D Dimer 3.55 ug/mL (<0.48)
[2024-07-02] MEDS: MIDAZOLAM 100MG/NS 100ML(*CRX) 100 MG/100 ML BAG IV CONT (02:45)
[2024-07-02] MEDS: FENTANYL 2,500MCG/NS250ML(*CRX 2,500 MCG/250 ML BAG IV CONT (02:46)
[2024-07-02] MEDS: OCTREOTIDE ACETATE 500 MCG in SODIUM CHLORIDE 0.9% IV 99 ML IV CONT (02:48)
--- NOTE | 2024-07-02 02:48 | PC.NURSE ---
At 0120 pt called the nurses station. Pt is Indian speaking; only able to speak some Irish. Pt stated, help! 2 Nurses and a tech attended to patient in bathroom actively vomiting bright red blood. Patient was told not to flush toilet and patient ended up flushing it any ways. Pt was taken back to bed. Pt ambulation was extremely unstable. Pt face was pale and sweating. Blood pressure was 70/36 manually, HR 75, o2 95%. Dr. Tai was called at 0119 in regards to change in patient's status. Dr. Tai ordered to call Dr. Cabral; was made aware of change of status and rapid response was called. Dr. Sania Shaikh ordered NS 500ml Bolus. Dr. Tai assessed pt during rapid response and pt status continue to decline even more. Dr. Tai ordered Protonix IV, NS 1000ml Bolus, NGTube placed, NPO diet, and pt was transferred to ICU-1. Pt seized at 0132 during NG Tube placement. Pt came to at 0133. Pt situated in ICU-1 at 0135 to have central line placed. Pt family was made aware of pt's status and how important for his to get to the hospital. Family member stated he will get pt's to the hospital.
--- NOTE | 2024-07-02 03:28 | P.RRN_ITS ---
Critical Care Event Note Summary Code activated: No Narrative: Nursing staff called at 01:20 patient's suddenly developed acute large volume hematemesis. The patient had vomited bright red blood in the toilet and in the bathroom on the medical floor. The patient then got back to bed and had acute emesis of more than 250 mL of bright red blood in emesis bag. Patient had had EGD on the which demonstrated diffuse inflammation esophagus with grade 4 esophagitis with ulcer instead moderate recent bleeding. Epinephrine was administered. No obvious esophageal varices noted during exam. The patient was transferred to the medical floor on July 01. His diet was advanced and he was doing well until acute onset of symptoms after midnight. A rapid response was called and when I arrived at the patient's bedside his systolic blood pressures were in the 80s. He was tachycardic, profusely diaphoretic, with marked pallor. The patient had waxing and waning mental status. Patient was still actively vomiting bright red blood about 200 mL while I was at bedside. An NG was emergently placed. The NG was initially placed on continuous suction to drink stomach with immediate return of about 350 mL of bright red blood. 40 mg of IV Protonix given to totaling 80 mg dose and patient was started on Protonix drip. I did call and discuss patient's case with Gastroenterology who wanted patient to be hemodynamically stable prior to taking the patient for scope. I moved the patient to the ICU placed a right femoral central line. The patient received a total of 3 L of normal saline between the medical floor and arrival to the ICU. After pressors were initiated patient's blood pressures did improve. I contacted Gastroenterology again who stated that they would like the patient to be intubated for airway protection. The patient was subsequently intubated and sedated on fentanyl and Versed. The patient very rapidly was maximized on fentanyl and Versed and he was still agitated and fighting against the ventilator. The patient's sedation was then switched to propofol. Stat labs have been obtained patient's hemoglobin had dropped 1 g prior to IV fluid resuscitation. 2 units packed red blood cells a been ordered over rapid infusion. Patient D-dimer was mildly elevated and his fibrinogen was lower limit of normal. So cryoprecipitate was also ordered. KUB was obtained and demonstrated NG tube in appropriate position. Chest x-ray was personally reviewed ET tube was noted at the danny. Order was given to pull ET tube back 2 cm. Earth Science Teacher was consulted and updated as to the patient's clinical course in for further recommendations. Four more units of blood have been place for crossmatch with blood bank. Will place patient on antibiotic therapy for possible aspiration of gastric contents/blood. The patient is primarily Kazakh-speaking only. The patient had central line placed emergently due to altered mental status with hypotension. After patient's blood pressures were stabilized I was able to get consent for intubation through use of translation anna. the patient requested that his be notified of his change in condition. Patient's only speaks Kazakh speaking only. Nursing staff was able to get hold of the patient's who had a neighbor who agreed to bring her to the hospital. 2 hours spent in critical care activities and exclusion of procedures. This case had a high probability of a clinically significant, sudden, or life threatening deterioration of this patient's condition which required my full and direct attention, intervention and personal management. Critical care time: 135 - 164 mins
[2024-07-02 03:39] LABS: Triglycerides 102 mg/dL (<150)
[2024-07-02] MEDS: PROPOFOL IV EMULSION 100 ML 2.11 MG IV CONT (03:40)
--- NOTE | 2024-07-02 03:44 | WPDPROCEDUR ---
Procedures Intubation Intubation Date: 07/02/24 Intubation Time: 02:30 A pre-procedural Time-Out was completed immediately before starting the procedure and confirmed: Patient Identification, Site, Procedure, Patient Position and the Availability of Requisite Equipment: Yes Sedative: etomidate Mg given: 20 Paralytic: succinylcholine Mg given: 100 Laryngoscope: fiber optic video scope ET tube size: 7.5 Tube secured depth (cm): 25 Tube secured location: teeth Tube placement confirmation: visualized tube passing through cords, equal breath sounds bilaterally, no breath sounds over epigastrium and confirmation by capnometry Patient tolerated procedure: well Additional comments: Chest x-ray was reviewed. ET tube was 1 cm from the danny. Orders given to pull back ET tube 2 cm.
--- NOTE | 2024-07-02 03:46 | P.PCNBED_ITS ---
Procedures Central Line Placement Right Femoral: Central Line Date: 07/02/24 Central Line Time: 01:30 Performed Emergently - Given emergent patient condition, temporal constraints may have precluded informed consent.: Yes Time Out Performed: Yes Patient Position: trendelenburg Patient placed on monitor/pulse ox: Yes Provider Prep: mask, sterile gown, sterile gloves, Max. sterile barrier precautions, cap and hand hygiene with conventional soap/water or alcohol based hand rub Central line prep: 2% Chlorhexidine scrub Local anesthesia used: lidocaine 1% Amount of anesthesia used (ml): 5 Sterile US Technique with sterile gel/sterile probe covers: Yes Central line lumen inserted: triple Panamanian: 7 Length (cm): 20 Depth of Insertion (cm): 19 Post Procedure: sutured in place, good blood return, all ports aspirated, flushed, capped, transparent dressing, hemostatic product, antimicrobial product, securement product and aseptic technique maintained throughout procedure Patient tolerated procedure: well Intubation Intubation Date: 07/02/24
[2024-07-02 04:24] LABS: Hematocrit 28.7 % (42.0-52.0); Hemoglobin 8.8 g/dL (14.0-18.0)
[2024-07-02] MEDS: LACTATED RINGERS 1,000 ML 100 ML IV CONT (04:52)
[2024-07-02 04:54] LABS: Alveolar/Arterial O2 Gradient 75.4 mmHg; Base Excess ABG -4.9 mEq/l (+/-2.0); Carboxyhemoglobin 0.2 % THb (0-2.0); Fractional Inspired Oxygen 40 %; HCO3 ABG 19.9 mEq/l (22.0-26.0); Methemoglobin ABG 0.1 %THb (0-1.5); Oxygen Content ABG 13.7 %vol (16.0-22.0); Oxygen Saturation ABG 99.1 % (95.0-100.0); Oxyhemoglobin 98.8 % THb (90.0-100.0); PCO2 ABG 35.6 mmHg (35.0-45.0); PO2 ABG 168.9 mmHg (80.0-100.0); PO2 FiO2 Ratio Arterial Blood 4.22 %; Reduced Hemoglobin 0.9 %THb (0-5.0); Total Hemoglobin 9.6 g/dL (12.0-18.0); pH ABG 7.365 (7.350-7.450)
[2024-07-02 04:58] LABS: Arterial Blood Gas PEEP 5 cmH2O; Arterial Blood Gas Tidal Volume 400 ml; Arterial Blood Gas Vent Mode CMV; Arterial Blood Gas Ventilator rate 16 /MIN; Device VENTILATOR; Modified Allen's Test Pass; Site Drawn RIGHT RADIAL
[2024-07-02 05:46] LABS: Hematocrit 27.5 % (42.0-52.0); Hemoglobin 8.5 g/dL (14.0-18.0); Immature Platelet Fraction Pct 7.6 % (0.9-11.2); Mean Corpuscular HGB Conc 30.9 g/dl (32-36); Mean Corpuscular Hemoglobin 25.9 pg (26-34); Mean Corpuscular Volume 83.8 fl (80-100); Mean Platelet Volume 10.5 fl (7.4-10.4); Platelet Count Result 124 k/mm3 (150-375); Red Blood Count 3.28 M/mm3 (4.6-6.20); Red Cell Distribution Width 17.2 % (11.5-14.5); White Blood Count 8.8 K/mm3 (4.5-10.0)
[2024-07-02 06:02] LABS: Alanine Aminotransferase 17 U/L (6-50); Albumin Level 2.8 g/dL (3.5-5.1); Alkaline Phosphatase 87 U/L (38-126); Anion Gap 8 mmol/L (4-12); Aspartate Amino Transferase 48 U/L (17-59); Bilirubin,Total 1.4 mg/dL (0.2-1.3); Blood Urea Nitrogen 6 mg/dL (9-20); Calcium 6.8 mg/dL (8.4-10.2); Carbon Dioxide 22 mmol/L (22-30); Chloride 106 mmol/L (98-107); Estimated CRCL calculation 113 ml/min; Estimated Glomerular Filt Rate > 60; Glucose 176 mg/dL (65-110); Magnesium 1.7 mg/dL (1.6-2.3); Potassium 3.7 mmol/L (3.4-5.0); Sodium 136 mmol/L (137-145)
--- NOTE | 2024-07-02 06:22 | SUR.OPER ---
lucio rn at bedside for the procedure 0615 vitals 107/72 HR84 RR 14 Spo2 95%, 0630 105/72 HR86 RR16 Spo2 100%, 0656 end 100/69 HR84 RR16 Spo2 99%. CLAUDE valdes at bedside at end of procedure. Emmanuel spoke and updated family.
[2024-07-02] MEDS: MAGNESIUM SULF 2 GM/WATER 50ML 2 GM/50 ML BAG IVPB (08:13)
[2024-07-02] MEDS: IRON SUCROSE COMPLEX 100 MG in SODIUM CHLORIDE 0.9% IV 50 ML 220 MG IVPB (08:14)
[2024-07-02] MEDS: THIAMINE HCL 200 MG/2 ML VIAL 100 MG IV PUSH (08:15)
[2024-07-02] MEDS: MINERAL OIL/WHITE PETROLATUM OINTMENT 1 APPLIC EACH EYE (08:15)
--- NOTE | 2024-07-02 08:29 | WPDINTPN ---
Progress Note: A&P Assessment and Plan (1) Acute upper gastrointestinal bleeding: Code(s): K92.2 - Gastrointestinal hemorrhage, unspecified Status: Acute Assessment and Plan: Patient presented with acute upper GI bleeding in setting of heavy alcohol intake. Patient received blood transfusion in the ER. Along with IV fluids He was treated with IV octreotide IV Protonix and IV Rocephin 06/29 EGD was done and showed reflux esophagitis along with ulcer 07/02 bleeding recurred and EGD showed nodular lesion 7-8 mm size above GE junction suggestive of varix or Dieulafoy's lesion with active bleeding. Patient was treated with speed band and hemo spray Ongoing bleeding GI physician recommends transfer to tertiary facility for angiogram embolization or tips I have spoken to transfer center at [facility] and waiting for call back Meanwhile continue Protonix and octreotide infusion Q4 hours hemoglobin levels and transfuse as needed npo Hemodynamic support with vasopressors and IV fluid (2) Acute respiratory failure: Code(s): J96.00 - Acute respiratory failure, unspecified whether with hypoxia or hypercapnia Status: Acute Assessment and Plan: Secondary to GI bleed and aspiration pneumonia chest x-ray ET tube tip just above the danny. Consider mild retraction. NG tube in satisfactory position. Focal discoid left basilar atelectasis or scarring. ETT already adjusted. Ventilator settings reviewed. ABG reviewed. Will continue mechanical ventilation until GI bleed control was achieved. Patient will likely be transferred. Blood cultures ordered Empiric Rocephin and Flagyl. (3) Esophageal ulcer: Code(s): K22.10 - Ulcer of esophagus without bleeding Status: Acute Assessment and Plan: See above (4) Alcohol abuse: Code(s): F10.10 - Alcohol abuse, uncomplicated Status: Acute Assessment and Plan: Currently sedated with Versed and propofol Thiamine and folic acid ordered (5) Acute blood loss anemia: Code(s): D62 - Acute posthemorrhagic anemia Status: Acute Assessment and Plan: Patient has received transfusion. Monitor hemoglobin and transfuse me as needed (6) Shock: Code(s): R57.9 - Shock, unspecified Status: Acute Assessment and Plan: Shock secondary to aspiration, GI bleed, sedation Continue IV fluids PRBC transfusion as needed Levophed infusion (7) Aspiration pneumonia: Code(s): J69.0 - Pneumonitis due to inhalation of food and vomit Status: Acute Assessment and Plan: See above Plan DVT prophylaxis -SCD Stress ulcer prophylaxis -PPI infusion Nutrition -npo Code Status - Full Code Due to ongoing bleeding, GI physician has recommended transfer to tertiary facility. I have spoken to transfer center at [facility] and [facility]. I am waiting for call back from physician to discuss the case Total Critical Care Time - 35 minutes Due to a high probability of clinically significant, life threatening deterioration, the patient required my highest level of preparedness to intervene emergently and I personally spent this critical care time directly and personally managing the patient. This critical care time included obtaining a history; examining the patient; pulse oximetry; ordering and review of studies; arranging urgent treatment with development of a management plan; evaluation of patient's response to treatment; frequent reassessment; and discussions with other providers. It was exclusive of separately billable procedures and treating other patients and teaching time. Please see Assessment and Plan section and the rest of the note for further information on patient assessment and treatment Subjective Date/time seen: 07/02/24 Overnight events reviewed. Patient was transferred out of ICU 05/30. Last night patient started vomiting blood again. He became hypotensive. Patient was intubated for airway protection. Central venous catheter was placed. Patient was started on Levophed. Patient received blood transfusion. Patient was also started on Protonix and octreotide infusion. Chest x-ray suggested aspiration. Patient was also started on antibiotics.. Patient underwent emergent EGD this morning. Currently sedated intubated and unable to provide any further history or review of systems. He is on Levophed for blood pressure support. He is sedated with Versed fentanyl and propofol. He is on octreotide and Protonix infusion. He is npo Review of Systems Review of Systems: All systems reviewed & are unremarkable except as noted in HPI and below (HPI) Exam Narrative: General: Pt is sedated, intubated and on mechanical ventilation Lungs/Chest: Trachea central Coarse BS B/L, No crackles or wheezing. Cardiac: RRR. Normal S1 S2. No murmurs Circulation: Pedal pulses are intact and symmetrical. Abdomen: Decreased bowel sounds. Obese. Soft. NT. ND. Extremities: No clubbing, cyanosis or edema. Warm : Castrejon in place Neurologic: Unable to assess due to sedation. . PERRL Objective Data Vital Signs Vital Signs: Vital Signs - 24 hr 07/01/24 10:00 07/01/24 16:00 07/01/24 20:00 Temperature 36.8 C Pulse Rate 82 81 Respiratory Rate 18 Blood Pressure 111/76 Pulse Oximetry 98 Oxygen Delivery Room Air Fraction of Inspired Oxygen 07/01/24 22:14 07/02/24 01:21 07/02/24 01:29 Temperature 36.8 C Pulse Rate 79 75 Respiratory Rate 18 Blood Pressure 110/65 70/36 L 88/62 L Pulse Oximetry 95 95 Oxygen Delivery Fraction of Inspired Oxygen 07/02/24 02:04 07/02/24 02:09 07/02/24 01:22 Temperature Pulse Rate 62 61 75 Respiratory Rate Blood Pressure 69/45 L 108/68 70/36 L Pulse Oximetry 95 Oxygen Delivery Room Air Fraction of Inspired Oxygen 07/02/24 02:45 07/02/24 02:46 07/02/24 02:52 Temperature Pulse Rate 104 H 113 H 128 H Respiratory Rate 16 16 Blood Pressure 129/79 Pulse Oximetry Oxygen Delivery Fraction of Inspired Oxygen 07/02/24 02:52 07/02/24 02:53 07/02/24 02:57 Temperature Pulse Rate 127 H 129 H 131 H Respiratory Rate 23 H 30 H Blood Pressure 109/59 L Pulse Oximetry Oxygen Delivery Fraction of Inspired Oxygen 07/02/24 02:55 07/02/24 02:55 07/02/24 03:02 Temperature Pulse Rate 129 H 130 H 113 H Respiratory Rate 30 H 30 H Blood Pressure 99/54 L Pulse Oximetry Oxygen Delivery Fraction of Inspired Oxygen 07/02/24 03:07 07/02/24 03:13 07/02/24 03:17 Temperature 36.4 C L Pulse Rate 117 H 113 H 112 H Respiratory Rate 16 Blood Pressure 84/58 L 84/58 L 64/44 L Pulse Oximetry 100 Oxygen Delivery Fraction of Inspired Oxygen 07/02/24 03:25 07/02/24 03:31 07/02/24 03:41 Temperature 36.4 C L 36.4 C L Pulse Rate 102 H 96 101 H Respiratory Rate 16 16 Blood Pressure 109/57 L 100/53 L 126/63 Pulse Oximetry 100 100 Oxygen Delivery Fraction of Inspired Oxygen 07/02/24 03:44 07/02/24 03:40 07/02/24 03:45 Temperature 36.4 C L Pulse Rate 98 100 100 Respiratory Rate 16 16 16 Blood Pressure 126/63 Pulse Oximetry 100 Oxygen Delivery Fraction of Inspired Oxygen 07/02/24 03:55 07/02/24 04:00 07/02/24 02:45 Temperature 36.3 C L Pulse Rate 98 91 103 H Respiratory Rate 16 16 Blood Pressure 110/70 Pulse Oximetry 100 100 Oxygen Delivery Mechanical Ventilation Fraction of Inspired Oxygen 40 07/02/24 01:21 07/02/24 04:19 07/02/24 04:37 Temperature 36.3 C L 36.1 C L Pulse Rate 75 86 79 Respiratory Rate 16 16 Blood Pressure 70/36 L 107/70 107/72 Pulse Oximetry 100 100 Oxygen Delivery Fraction of Inspired Oxygen 07/02/24 04:46 07/02/24 04:47 07/02/24 04:00 Temperature 36.1 C L Pulse Rate 68 69 98 Respiratory Rate 16 16 Blood Pressure 108/72 108/72 Pulse Oximetry 100 Oxygen Delivery Fraction of Inspired Oxygen 07/02/24 04:00 07/02/24 04:54 07/02/24 06:10 Temperature Pulse Rate 98 72 67 Respiratory Rate 16 Blood Pressure 109/78 Pulse Oximetry 100 Oxygen Delivery Mechanical Ventilation Fraction of Inspired Oxygen 30 07/02/24 07:15 07/02/24 06:00 07/02/24 06:00 Temperature Pulse Rate 74 59 L 59 L Respiratory Rate 16 16 Blood Pressure Pulse Oximetry 98 Oxygen Delivery Mechanical Ventilation Fraction of Inspired Oxygen 30 07/02/24 06:00 07/02/24 08:00 07/02/24 08:00 Temperature Pulse Rate 59 L 63 64 Respiratory Rate 16 16 16 Blood Pressure Pulse Oximetry Oxygen Delivery Fraction of Inspired Oxygen 07/02/24 08:00 07/02/24 04:00 Temperature Pulse Rate 65 90 Respiratory Rate Blood Pressure 121/72 Pulse Oximetry Oxygen Delivery Fraction of Inspired Oxygen Intake/Output Intake/Output: Intake & Output 06/30/24 07/01/24 07/01/24 07/02/24 00:59 00:59 23:59 23:59 Intake Total 1027.6 Output Total 200 Balance 827.6 Meds/Results Medications: Active Medications Generic Name Dose Route Start Last Admin Trade Name Freq PRN Reason Stop Dose Admin Folic Acid 1 mg 07/02/24 09:00 Folic Acid 1 Mg/0.2 Ml Inj IV PUSH QAM SJ Iron Sucrose 100 mg/ Sodium 55 mls @ 220 mls/hr 07/01/24 11:00 07/02/24 08:14 Chloride IVPB 220 mls/hr DAILY SJ Administration Octreotide Acetate 500 mcg/ 100 mls @ 5 mls/hr 07/02/24 01:40 07/02/24 02:48 Sodium Chloride IV CONT 25 mcg/hr .Q20H SJ 5 mls/hr Administration 25 MCG/HR Pantoprazole Sodium 80 mg/ 500 mls @ 50 mls/hr 07/02/24 01:45 07/02/24 02:28 Sodium Chloride IV CONT 50 mls/hr .Q10H SJ Administration Norepinephrine Bitartrate 8 mg in 250 mls @ 9.375 mls/hr 07/02/24 02:00 07/02/24 08:00 Levophed 8 Mg/D5w 250 Ml IV CONT 5 mcg/min .Q24H SJ 9.38 mls/hr Titration Protocol 5 MCG/MIN Fentanyl Citrate 2,500 mcg in 250 mls @ 17.5 mls/hr 07/02/24 02:40 07/02/24 08:00 Fentanyl 2,500 Mcg/Ns 250 Ml IV CONT 175 mcg/hr .[id number] SJ 17.5 mls/hr Titration Protocol 175 MCG/HR Midazolam HCl 100 mg in 100 mls @ 9 mls/hr 07/02/24 02:40 07/02/24 08:00 Versed 100 Mg/Ns 100 Ml IV CONT 9 mg/hr .Q11H7M SJ 9 mls/hr Titration Protocol 9 MG/HR Sodium Chloride 250 mls @ 30 mls/hr 07/02/24 02:42 07/02/24 04:53 Normal Saline Iv IV CONT 07/02/24 11:01 Not Given .Q8H20M STA Propofol 100 mls @ 6.318 mls/hr 07/02/24 03:10 07/02/24 06:00 Diprivan IV CONT 15 mcg/kg/min .[id number] SJ 6.32 mls/hr Titration Protocol 15 MCG/KG/MIN Sodium Chloride 250 mls @ 30 mls/hr 07/02/24 03:25 Normal Saline Iv IV CONT 07/02/24 11:44 .Q8H20M STA Lactated Ringer's 1,000 mls @ 100 mls/hr 07/02/24 03:35 07/02/24 04:52 Lr - Lactated Ringers Iv IV CONT 100 mls/hr .Q10H SJ Administration Ceftriaxone Sodium 1 gm in 50 mls @ 100 mls/hr 07/02/24 09:00 Rocephin 1 Gm/Ns 50 Ml IVPB Q24H SJ Metronidazole 500 mg in 100 mls @ 100 mls/hr 07/02/24 07:15 Flagyl 500 Mg/Iso Soln 100 Ml IVPB Q8HR SJ Magnesium Sulfate 2 gm in 50 mls @ 25 mls/hr 07/02/24 07:45 07/02/24 08:13 Magnesium Sulf 2 Gm/Water 50ml IVPB 07/02/24 09:44 25 mls/hr ONCE ONE Administration Calcium Gluconate 2,000 mg in 100 mls @ 100 mls/hr 07/02/24 07:50 Calcium Gluc 2,000 Mg/Ns 100ml IVPB 07/02/24 08:49 ONCE ONE Albumin Human 100 mls @ 60 mls/hr 07/02/24 08:00 Albutein IVPB 07/03/24 03:39 Q6H SJ Lorazepam 1 mg 06/29/24 21:28 Lorazepam Inj (*Crx) 2 Mg/Ml Vial IV PUSH Q2H PRN CIWA 8-15 Lorazepam 2 mg 06/29/24 21:28 Lorazepam Inj (*Crx) 2 Mg/Ml Vial IV PUSH Q2H PRN CIWA > 15 Multi-Ingred Cream/Lotion/Oil/Oint 1 applic 07/02/24 09:00 07/02/24 08:15 Mineral Oil/White Petrolatum Ointment EACH EYE 1 applic Q12HR SJ Administration Multi-Ingred Cream/Lotion/Oil/Oint 1 applic 07/02/24 09:00 07/02/24 08:15 Mineral Oil/White Petrolatum Ointment EACH EYE Not Given Q12HR SJ Naloxone HCl 0.1 mg 06/29/24 21:32 Naloxone Hcl 0.4 Mg/Ml Vial IV PUSH Q5MIN PRN Opioid Reversal Ondansetron HCl 4 mg 06/29/24 18:41 07/02/24 01:16 Ondansetron Inj 4 Mg/2 Ml Vial IV PUSH 4 mg Q4H PRN Administration Nausea Perflutren Lipid Microsphere 0 ml 06/29/24 21:38 Perflutren Lipid Microspheres 1.5 Ml Vial Diluted To 10 Ml Total Volume IV PUSH 07/02/24 21:38 ONCE PRN adequate visualization Protocol Sodium Chloride 10 ml 07/02/24 14:00 Central Line Flush IV PUSH Q8HR SJ Sodium Chloride 20 ml 07/02/24 06:47 Central Line Flush IV PUSH PRN PRN after blood draws Thiamine HCl 100 mg 06/30/24 09:00 07/02/24 08:15 Thiamine Hcl 200 Mg/2 Ml Vial IV PUSH 100 mg DAILY SJ Administration Radiology Results: ITS Impressions Abdomen/Pelvis CT 06/29/24 23:05 IMPRESSION: 1. Thickened wall of the gallbladder. Clinical evaluation for cholecystitis advised. 2. Small sliding hiatus hernia. 3. Ascites is seen in the infrahepatic, perisplenic and paracolic areas more on the right side. 4. Prostatic calcifications is noted. Possibility of a prostatic urethra stone is less likely. Clinical correlation advised. Abdomen Ultrasound 06/30/24 15:53 IMPRESSION: Mild ascites Abdomen X-Ray 07/02/24 06:45 Impression: NG tube in satisfactory position. Chest X-Ray 07/02/24 06:46 Impression: ET tube tip just above the danny. Consider mild retraction. NG tube in satisfactory position. Focal discoid left basilar atelectasis or scarring. Labs Labs: Laboratory Results - last 24 hr 06/29/24 07/02/24 07/02/24 13:09 01:19 01:36 WBC 11.2 H RBC 2.84 L Hgb 7.3 L Hct 23.5 L MCV 82.7 MCH 25.7 L MCHC 31.1 L RDW 18.5 H Plt Count 138 L D MPV 10.7 H % Immature Plt Fraction 8.5 PT 17.9 H INR 1.4 APTT 28.6 Fibrinogen 225 D-Dimer 3.55 H Puncture Site ABG pH ABG pCO2 ABG pO2 ABG PO2/FiO2 Ratio ABG HCO3 ABG O2 Saturation ABG O2 Content ABG Base Excess A-a Gradient Oxyhemoglobin Carboxyhemoglobin Methemoglobin Reduced Hemoglobin Total Hemoglobin O2 Delivery Device O2 Liters/Min Minute Volume Vent Rate Vent Mode FiO2 Tidal Volume PEEP Peak Inspir Pressure Pressure Support Sodium 137 Potassium 3.4 Chloride 103 Carbon Dioxide 23 Anion Gap 11 BUN 5 L Creatinine 0.60 L Estim Creat Clear Calc 131 Estimated GFR > 60 Glucose 131 H POC Capillary Glucose 110 H Calcium 7.9 L Magnesium Total Bilirubin 1.0 AST 51 ALT 18 Alkaline Phosphatase 94 Total Protein 7.0 Albumin 3.1 L Triglycerides 102 Blood Type O Positive Antibody Screen Negative Crossmatch See Detail 07/02/24 07/02/24 07/02/24 04:18 04:42 05:35 WBC 8.8 RBC 3.28 L Hgb 8.8 L 8.5 L Hct 28.7 L 27.5 L MCV 83.8 MCH 25.9 L MCHC 30.9 L RDW 17.2 H Plt Count 124 L MPV 10.5 H % Immature Plt Fraction 7.6 PT INR APTT Fibrinogen D-Dimer Puncture Site Right radial ABG pH 7.365 ABG pCO2 35.6 ABG pO2 168.9 H ABG PO2/FiO2 Ratio 4.22 ABG HCO3 19.9 L ABG O2 Saturation 99.1 ABG O2 Content 13.7 L ABG Base Excess -4.9 A-a Gradient 75.4 Oxyhemoglobin 98.8 Carboxyhemoglobin 0.2 Methemoglobin 0.1 Reduced Hemoglobin 0.9 Total Hemoglobin 9.6 L O2 Delivery Device Ventilator O2 Liters/Min Not Reportable Minute Volume Not Reportable Vent Rate 16 Vent Mode Cmv FiO2 40 Tidal Volume 400 PEEP 5 Peak Inspir Pressure Not Reportable Pressure Support Not Reportable Sodium Potassium Chloride Carbon Dioxide Anion Gap BUN Creatinine Estim Creat Clear Calc Estimated GFR Glucose POC Capillary Glucose Calcium Magnesium Total Bilirubin AST ALT Alkaline Phosphatase Total Protein Albumin Triglycerides Blood Type Antibody Screen Crossmatch 07/02/24 05:36 WBC RBC Hgb Hct MCV MCH MCHC RDW Plt Count MPV % Immature Plt Fraction PT INR APTT Fibrinogen D-Dimer Puncture Site ABG pH ABG pCO2 ABG pO2 ABG PO2/FiO2 Ratio ABG HCO3 ABG O2 Saturation ABG O2 Content ABG Base Excess A-a Gradient Oxyhemoglobin Carboxyhemoglobin Methemoglobin Reduced Hemoglobin Total Hemoglobin O2 Delivery Device O2 Liters/Min Minute Volume Vent Rate Vent Mode FiO2 Tidal Volume PEEP Peak Inspir Pressure Pressure Support Sodium 136 L Potassium 3.7 Chloride 106 Carbon Dioxide 22 Anion Gap 8 BUN 6 L Creatinine 0.70 Estim Creat Clear Calc 113 Estimated GFR > 60 Glucose 176 H POC Capillary Glucose Calcium 6.8 L Magnesium 1.7 Total Bilirubin 1.4 H AST 48 ALT 17 Alkaline Phosphatase 87 Total Protein 6.0 L Albumin 2.8 L Triglycerides Blood Type Antibody Screen Crossmatch Quality VTE Prophylaxis VTE prophylaxis: mechanical ordered
[2024-07-02] MEDS: CALCIUM GLUC 2,000 MG/NS 100ML 2,000 MG/100 ML BAG 100 MG IVPB (09:06)
[2024-07-02] MEDS: FOLIC ACID 1 MG/0.2 ML INJ IV PUSH (09:06)
--- NOTE | 2024-07-02 10:03 | PC.NURSE ---
Report called to CLAUDE Meier @ 1003 @ [facility] ICU Room 424. Awaiting transportation.
[2024-07-02 10:31] LABS: Hematocrit 24.9 % (42.0-52.0); Hemoglobin 8.1 g/dL (14.0-18.0); Immature Platelet Fraction Pct 6.9 % (0.9-11.2); Mean Corpuscular HGB Conc 32.5 g/dl (32-36); Mean Corpuscular Hemoglobin 27.1 pg (26-34); Mean Corpuscular Volume 83.3 fl (80-100); Mean Platelet Volume 10.2 fl (7.4-10.4); Platelet Count Result 112 k/mm3 (150-375); Red Blood Count 2.99 M/mm3 (4.6-6.20); Red Cell Distribution Width 17.5 % (11.5-14.5); White Blood Count 7.2 K/mm3 (4.5-10.0)
[2024-07-02] MEDS: ALBUMIN HUMAN 25% 25 GM/100 ML 100 ML IVPB (10:35)
--- NOTE | 2024-07-02 12:33 | PM.TDS ---
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 to consult: surgery Reason for consultation: RUQ pain Has provider been notified: Yes Consult to Physician Routine Comment: Consulting Provider: Hira Cabral Reason for consultation: upper GIB Has provider been notified: Yes Consult to Physician Routine Comment: Consulting Provider: Devaughn Velez Reason for consultation: hematemesis/Upper GIB, anemia requiring blood transfusion Has provider been notified: Yes 06/29/24 15:35 Care Coordination Consult Routine Reason for Consult:: Other DS: Admitting Diagnosis Discharge Date 07/02/2024 Admitting Diagnosis GI bleed DS: Discharge Diagnosis Discharge Diagnosis (1) Acute upper gastrointestinal bleeding: Code(s): K92.2 - Gastrointestinal hemorrhage, unspecified Status: Acute (2) Acute respiratory failure: Code(s): J96.00 - Acute respiratory failure, unspecified whether with hypoxia or hypercapnia Status: Acute (3) Esophageal ulcer: Code(s): K22.10 - Ulcer of esophagus without bleeding Status: Acute (4) Alcohol abuse: Code(s): F10.10 - Alcohol abuse, uncomplicated Status: Acute (5) Acute blood loss anemia: Code(s): D62 - Acute posthemorrhagic anemia Status: Acute (6) Shock: Code(s): R57.9 - Shock, unspecified Status: Acute (7) Aspiration pneumonia: Code(s): J69.0 - Pneumonitis due to inhalation of food and vomit Status: Acute Transfer Discharge Sum: Med Medications Active and Home Medications: Home Medications No Home Medications 06/29/24 [History Confirmed 06/29/24] Active Medications Folic Acid (Folic Acid 1 Mg/0.2 Ml Inj) 1 mg IV PUSH QAM [facility] Last Admin: 07/02/24 09:06 Dose: 1 mg Iron Sucrose 100 mg/ Sodium (Chloride) 55 mls @ 220 mls/hr IVPB DAILY [facility] Last Infusion: 07/02/24 08:29 Dose: Infused Octreotide Acetate 500 mcg/ (Sodium Chloride) 100 mls @ 5 mls/hr IV CONT .Q20H [facility] Last Admin: 07/02/24 02:48 Dose: 25 mcg/hr, 5 mls/hr Pantoprazole Sodium 80 mg/ (Sodium Chloride) 500 mls @ 50 mls/hr IV CONT .Q10H [facility] Last Admin: 07/02/24 02:28 Dose: 50 mls/hr Norepinephrine Bitartrate (Levophed 8 Mg/D5w 250 Ml) 8 mg in 250 mls @ 9.375 mls/hr IV CONT .Q24H [facility]; Protocol Last Titration: 07/02/24 08:00 Dose: 5 mcg/min, 9.38 mls/hr Fentanyl Citrate (Fentanyl 2,500 Mcg/Ns 250 Ml) 2,500 mcg in 250 mls @ 15 mls/hr IV CONT .[id number] [facility]; Protocol Last Titration: 07/02/24 10:15 Dose: 150 mcg/hr, 15 mls/hr Midazolam HCl (Versed 100 Mg/Ns 100 Ml) 100 mg in 100 mls @ 7 mls/hr IV CONT .[id number] [facility]; Protocol Last Titration: 07/02/24 10:10 Dose: 7 mg/hr, 7 mls/hr Propofol (Diprivan) 100 mls @ 6.318 mls/hr IV CONT .[id number] [facility]; Protocol Last Titration: 07/02/24 06:00 Dose: 15 mcg/kg/min, 6.32 mls/hr Lactated Ringer's (Lr - Lactated Ringers Iv) 1,000 mls @ 100 mls/hr IV CONT .Q10H [facility] Last Admin: 07/02/24 04:52 Dose: 100 mls/hr Ceftriaxone Sodium (Rocephin 1 Gm/Ns 50 Ml) 1 gm in 50 mls @ 100 mls/hr IVPB Q24H [facility] Last Admin: 07/02/24 10:35 Dose: 100 mls/hr Metronidazole (Flagyl 500 Mg/Iso Soln 100 Ml) 500 mg in 100 mls @ 100 mls/hr IVPB Q8HR [facility] Albumin Human (Albutein) 100 mls @ 60 mls/hr IVPB Q6H [facility] Stop: 07/03/24 03:39 Last Admin: 07/02/24 10:35 Dose: 60 mls/hr Lorazepam (Lorazepam Inj (*Crx) 2 Mg/Ml Vial) 1 mg IV PUSH Q2H PRN PRN Reason: CIWA 8-15 Lorazepam (Lorazepam Inj (*Crx) 2 Mg/Ml Vial) 2 mg IV PUSH Q2H PRN PRN Reason: CIWA > 15 Multi-Ingred Cream/Lotion/Oil/Oint (Mineral Oil/White Petrolatum Ointment) 1 applic EACH EYE Q12HR [facility] Last Admin: 07/02/24 08:15 Dose: 1 applic Multi-Ingred Cream/Lotion/Oil/Oint (Mineral Oil/White Petrolatum Ointment) 1 applic EACH EYE Q12HR [facility] Last Admin: 07/02/24 08:15 Dose: Not Given Naloxone HCl (Naloxone Hcl 0.4 Mg/Ml Vial) 0.1 mg IV PUSH Q5MIN PRN PRN Reason: Opioid Reversal Ondansetron HCl (Ondansetron Inj 4 Mg/2 Ml Vial) 4 mg IV PUSH Q4H PRN PRN Reason: Nausea Last Admin: 07/02/24 01:16 Dose: 4 mg Perflutren Lipid Microsphere (Perflutren Lipid Microspheres 1.5 Ml Vial Diluted To 10 Ml Total Volume) 0 ml IV PUSH ONCE PRN; Protocol PRN Reason: adequate visualization Stop: 07/02/24 21:38 Sodium Chloride (Central Line Flush) 10 ml IV PUSH Q8HR [facility] Sodium Chloride (Central Line Flush) 20 ml IV PUSH PRN PRN PRN Reason: after blood draws Thiamine HCl (Thiamine Hcl 200 Mg/2 Ml Vial) 100 mg IV PUSH DAILY [facility] Last Admin: 07/02/24 08:15 Dose: 100 mg Transfer Discharge Sum: Hosp Hospital Course Hospital course: Laron Macdonald is a 38 year old male who with acute upper GI bleed. Received blood transfusion in the ER. Was started 1 IV Protonix IV octreotide and IV Rocephin. 06/29 EGD was done showed reflux esophagitis along with ulcer. On 07/02/24 patient had significant increased oxygen requirement decreased respiratory effort. Patient was intubated for impending respiratory failure. Patient also repleted and hence Repeat EGD was done on 07/02/2024. EGD showed noted alert lesion 7-8 mm size of of GE junction suggestive of pharynx or dial for his lesion with active bleeding. Patient was treated with speed band and hemo spray. Ongoing bleed. GI recommended transfer to tertiary facility for angiogram embolization or tips. Transfer arrangements were made and was transferred to [facility]. Patient was mechanically ventilated until GI bleed is controlled and was sedated Esophageal ulcer on PPI Alcohol abuse Acute blood loss anemia needing transfusion Shock secondary to aspiration GI bleed. Levophed was instituted Aspiration pneumonia on broad-spectrum antibiotics Time Spent with Patient Time attestation: Total time spent providing and/or coordinating transfer services: 35 minute Exam Narrative: General: Pt is sedated, intubated and on mechanical ventilation Lungs/Chest: Trachea central Coarse BS B/L, No crackles or wheezing. Cardiac: RRR. Normal S1 S2. No murmurs Circulation: Pedal pulses are intact and symmetrical. Abdomen: Decreased bowel sounds. Obese. Soft. NT. ND. Extremities: No clubbing, cyanosis or edema. Warm : Castrejon in place Neurologic: Unable to assess due to sedation. . PERRL DS: Data Data Completed and Pending Completed studies during hospitalization: Exam Type: CA echo doppler color flow Study Info Indications - murmur Complete two-dimensional, color flow and Doppler transthoracic echocardiogram is performed. Summary 1. Complete two-dimensional, color flow and Doppler transthoracic echocardiogram is performed. 2. Left ventricular systolic function is normal, estimated at 60-65%. 3. The left ventricular diastolic function is normal. 4. Left atrial chamber dimension is mildly enlarged. 5. There is mild to moderate anterior directed mitral valve regurgitation. The severity of the mitral regurgitation can be underestimated given the eccentric direction of the mitral regurgitation. Consider transesophageal echocardiogram to further evaluate. 6. There is trace tricuspid valve regurgitation. 7. No pulmonary hypertension, estimated pulmonary arterial systolic pressure is 30 mmHg. Left Ventricle Left ventricular chamber dimension is normal. Left ventricular systolic function is normal, estimated at 60-65%. There is no increased left ventricular wall thickness. Left ventricular septal wall motion is normal. The left ventricular diastolic function is normal. Right Ventricle Right ventricular chamber dimension is normal. Right ventricular systolic function is normal. Left Atria Left atrial chamber dimension is mildly enlarged. Right Atria Right atrial chamber dimension is normal. Atrial Septum Intact interatrial septum visualized by color flow imaging. Aortic Valve The aortic valve is trileaflet. There is mild aortic valve sclerosis. There is no aortic valve stenosis. There is no aortic valve regurgitation. Pulmonic Valve The pulmonic valve is normal. There is no pulmonic valve stenosis. There is no pulmonic regurgitation. Mitral Valve The mitral valve has normal leaflets. There is no mitral valve stenosis. There is mild to moderate anterior directed mitral valve regurgitation. The severity of the mitral regurgitation can be underestimated given the eccentric direction of the mitral regurgitation. Consider transesophageal echocardiogram to further evaluate. Tricuspid Valve The tricuspid valve leaflets are normal. There is no significant tricuspid valve stenosis. There is trace tricuspid valve regurgitation. No pulmonary hypertension, estimated pulmonary arterial systolic pressure is 30 mmHg. Pericardium/Pleural The pericardium appears normal. There is no pericardial effusion. Inferior Vena Cava Normal inferior vena cava with >50% collapse upon inspiration consistent with Empty right atrial pressure, 5 mmHg. Aorta The aortic root size at the sinus of Valsalva is normal. The prox ascending aorta size is normal. Labs on day of discharge: Labs from last 24 hours 07/02/24 07/02/24 07/02/24 10:23 05:36 05:35 WBC 7.2 8.8 RBC 2.99 L 3.28 L Hgb 8.1 L 8.5 L Hct 24.9 L 27.5 L MCV 83.3 83.8 MCH 27.1 25.9 L MCHC 32.5 30.9 L RDW 17.5 H 17.2 H Plt Count 112 L 124 L MPV 10.2 10.5 H % Immature Plt Fraction 6.9 7.6 PT INR APTT Fibrinogen D-Dimer Puncture Site ABG pH ABG pCO2 ABG pO2 ABG PO2/FiO2 Ratio ABG HCO3 ABG O2 Saturation ABG O2 Content ABG Base Excess A-a Gradient Oxyhemoglobin Carboxyhemoglobin Methemoglobin Reduced Hemoglobin Total Hemoglobin O2 Delivery Device O2 Liters/Min Minute Volume Vent Rate Vent Mode FiO2 Tidal Volume PEEP Peak Inspir Pressure Pressure Support Sodium 136 L Potassium 3.7 Chloride 106 Carbon Dioxide 22 Anion Gap 8 BUN 6 L Creatinine 0.70 Estim Creat Clear Calc 113 Estimated GFR > 60 Glucose 176 H POC Capillary Glucose Calcium 6.8 L Magnesium 1.7 Total Bilirubin 1.4 H AST 48 ALT 17 Alkaline Phosphatase 87 Total Protein 6.0 L Albumin 2.8 L Triglycerides Blood Type Antibody Screen Crossmatch 07/02/24 07/02/24 07/02/24 04:42 04:18 01:36 WBC 11.2 H RBC 2.84 L Hgb 8.8 L 7.3 L Hct 28.7 L 23.5 L MCV 82.7 MCH 25.7 L MCHC 31.1 L RDW 18.5 H Plt Count 138 L D MPV 10.7 H % Immature Plt Fraction 8.5 PT 17.9 H INR 1.4 APTT 28.6 Fibrinogen 225 D-Dimer 3.55 H Puncture Site Right radial ABG pH 7.365 ABG pCO2 35.6 ABG pO2 168.9 H ABG PO2/FiO2 Ratio 4.22 ABG HCO3 19.9 L ABG O2 Saturation 99.1 ABG O2 Content 13.7 L ABG Base Excess -4.9 A-a Gradient 75.4 Oxyhemoglobin 98.8 Carboxyhemoglobin 0.2 Methemoglobin 0.1 Reduced Hemoglobin 0.9 Total Hemoglobin 9.6 L O2 Delivery Device Ventilator O2 Liters/Min Not Reportable Minute Volume Not Reportable Vent Rate 16 Vent Mode Cmv FiO2 40 Tidal Volume 400 PEEP 5 Peak Inspir Pressure Not Reportable Pressure Support Not Reportable Sodium 137 Potassium 3.4 Chloride 103 Carbon Dioxide 23 Anion Gap 11 BUN 5 L Creatinine 0.60 L Estim Creat Clear Calc 131 Estimated GFR > 60 Glucose 131 H POC Capillary Glucose Calcium 7.9 L Magnesium Total Bilirubin 1.0 AST 51 ALT 18 Alkaline Phosphatase 94 Total Protein 7.0 Albumin 3.1 L Triglycerides 102 Blood Type Antibody Screen Crossmatch 07/02/24 06/29/24 01:19 13:09 WBC RBC Hgb Hct MCV MCH MCHC RDW Plt Count MPV % Immature Plt Fraction PT INR APTT Fibrinogen D-Dimer Puncture Site ABG pH ABG pCO2 ABG pO2 ABG PO2/FiO2 Ratio ABG HCO3 ABG O2 Saturation ABG O2 Content ABG Base Excess A-a Gradient Oxyhemoglobin Carboxyhemoglobin Methemoglobin Reduced Hemoglobin Total Hemoglobin O2 Delivery Device O2 Liters/Min Minute Volume Vent Rate Vent Mode FiO2 Tidal Volume PEEP Peak Inspir Pressure Pressure Support Sodium Potassium Chloride Carbon Dioxide Anion Gap BUN Creatinine Estim Creat Clear Calc Estimated GFR Glucose POC Capillary Glucose 110 H Calcium Magnesium Total Bilirubin AST ALT Alkaline Phosphatase Total Protein Albumin Triglycerides Blood Type O Positive Antibody Screen Negative Crossmatch See Detail Preliminary micro results at discharge 06/29/24 13:34 Blood Culture - Preliminary Blood 06/29/24 13:32 Blood Culture - Preliminary Blood Imaging Radiologist's impression: ITS Impressions Abdomen/Pelvis CT 06/29/24 23:05 IMPRESSION: 1. Thickened wall of the gallbladder. Clinical evaluation for cholecystitis advised. 2. Small sliding hiatus hernia. 3. Ascites is seen in the infrahepatic, perisplenic and paracolic areas more on the right side. 4. Prostatic calcifications is noted. Possibility of a prostatic urethra stone is less likely. Clinical correlation advised. Abdomen Ultrasound 06/30/24 15:53 IMPRESSION: Mild ascites Abdomen X-Ray 07/02/24 06:45 Impression: NG tube in satisfactory position. Chest X-Ray 07/02/24 06:46 Impression: ET tube tip just above the danny. Consider mild retraction. NG tube in satisfactory position. Focal discoid left basilar atelectasis or scarring.
== END 2024-07-02 11:22 | disposition short-term general hospital (02) | DRG 253 ==
LOC: ANHED 14:30 → ANHICU 20:11 → ANHIMU 06-30 14:28 → ANH3MEDSUR 07-01 11:58 → ANHICU 07-04 08:48
PROVIDERS: Internal Medicine; Internal Medicine Gastroenterology; Physician Assistant; Admitting Provider Internal Medicine; Emergency Provider Student in an Organized Health Care Education/Training Program; Visit Provider Internal Medicine
PROC: 0DJ08ZZ Inspection of Upper Intestinal Tract, Via Natural or Artificial Opening Endoscopic (ICD-10-PCS; CPT 43235; principal; 2024-06-30 07:30)
DX: K92.2 Gastrointestinal hemorrhage, unspecified (principal); K21.01 Gastro-esophageal reflux disease with esophagitis, with bleeding; R57.8 Other shock; J69.0 Pneumonitis due to inhalation of food and vomit; J96.00 Acute respiratory failure, unspecified whether with hypoxia or hypercapnia; D62 Acute posthemorrhagic anemia; D50.9 Iron deficiency anemia, unspecified; D69.6 Thrombocytopenia, unspecified; E87.6 Hypokalemia; F10.10 Alcohol abuse, uncomplicated; F17.210 Nicotine dependence, cigarettes, uncomplicated; I85.01 Esophageal varices with bleeding; R01.1 Cardiac murmur, unspecified; K92.0 Hematemesis; K82.8 Other specified diseases of gallbladder; K44.9 Diaphragmatic hernia without obstruction or gangrene; K22.11 Ulcer of esophagus with bleeding
CPT/HCPCS: 31500; 36415; 36430; 36600; 74177; 76700; 80053; 81001; 82375; 82607; 82728; 82746; 82805; 82948; 83036; 83050; 83540; 83550; 83605; 83690; 83735; 83880; 84100; 84439; 84443; 84478; 84480; 84484; 85014; 85018; 85025; 85027; 85055; 85380; 85384; 85610; 85730; 86850; 86900; 86901; 86923; 87040; 87641; 93005; 93306; 94002; 96361; 96365; 96366; 96367; 96375; 96376; 99285; A9270; C1052; G0378; J0171; J0330; J0613; J0696; J0780; J1200; J1756; J1836; J2003; J2060; J2250; J2270; J2354; J2405; J2470; J2704; J3010; J3411; J3475; J3480; J7030; J7040; J7050; J7120; P9012; P9016; P9047; Q9967